=== PATIENT | male | born 1950 | race Caucasian/White ===

== ENCOUNTER 2016-12-03 18:42 | Inpatient (IN) | payer MEDICARE ==
[~2016-12-03] VITALS: Ht 182.9 cm; Wt 129.8 kg
[~2016-12-03 18:42] MED LIST: ALLO300T PO; ASPI-482 PO; ATOR40TA59 PO; CANA100T PO; EXEN2VIA SQ; LINA5TAB4 PO; LISI-334 PO; LISI1TAB5 PO; METF-620 PO; METO25TA4 PO; NIFE30TA9 PO; NIFE60TA10 PO; TICA90TA PO
[2016-12-03 19:28] LABS: BASO # 0.1 x10^3/uL (0.0-0.2); BASO % 1 % (0-3); EOS % 2 % (0-3); HEMATOCRIT 45.2 % (39.0-53.0); HEMOGLOBIN 14.8 g/dL (13.0-17.5); LYMPH # 1.2 x10^3/uL (1.0-4.8); LYMPH % 12 % (24-48); MEAN CORPUSCULAR HEMOGLOBIN 30 pg (25-35); MEAN CORPUSCULAR HGB CONC 33 g/dL (31-37); MEAN CORPUSCULAR VOLUME 92 fL (79-100); MONO % 7 % (0-9); NEUT % 79 % (31-73); PLATELET COUNT 341 x10^3/uL (140-400); RED BLOOD COUNT 4.93 x10^6/uL (4.30-5.70); WHITE BLOOD COUNT 10.4 x10^3/uL (4.0-11.0)
[2016-12-03 19:40] LABS: CALCIUM 9.2 mg/dL (8.5-10.1); CREATININE 0.9 mg/dL (0.7-1.3); GFR 84.4; POTASSIUM 4.4 mmol/L (3.5-5.1)
[2016-12-03 19:46] LABS: ALBUMIN 4.2 g/dL (3.4-5.0); ALBUMIN/GLOBULIN RATIO 1.4 (1.0-1.7); TOTAL BILIRUBIN 0.2 mg/dL (0.2-1.0); TOTAL PROTEIN 7.3 g/dL (6.4-8.2)
[2016-12-03] MEDS ORDERED: INSU300I SQ (20:08)
--- NOTE | 2016-12-03 20:14 | PHYS DOC ---
Past Medical History Past Medical History: Diabetes-Type II, High Cholesterol, Heart Disease, Hypertension, Other Additional Past Medical Histor: L ciatica - L foot neuropathy Past Surgical History: Angioplasty, Other Additional Past Surgical Histo: Cardiac stent,lower back surgery Alcohol Use: None Drug Use: None Adult General Chief Complaint Chief Complaint: CHEST PAIN HPI HPI Patient is a 66 year old gentleman with history significant for coronary artery disease in the past who has had 2 stents, history of hypertension and diabetes. No history of liver longer kidney pals. Does not smoke drink or do any drugs. Is not allergic to any medications. Patient presents here today complaining of chest discomfort while he was walking. Patient reports she's had intermittent chest pain for the last 2 weeks this pain radiating down his left arm with some associated shortness of breath. Patient reports his last tetanus 3 years ago. Patient reports he had a stress test last December and was told was normal. 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 Patient denies any other symptomology. Patient denies any fevers shakes chills nausea vomiting diarrhea cough cold runny nose. Constitutional: Denies fever or chills Eyes: Denies change in visual acuity, redness, or eye pain HENT: Denies nasal congestion or sore throat All other review systems are negative except as documented in the history of present illness portion. Physical exam: Constitutional: Well developed, well nourished, no acute distress, non-toxic appearance. HENT: Normocephalic, atraumatic, bilateral external ears normal, nose normal. Eyes: EOMI, conjunctiva normal, no discharge. Neck: Normal range of motion, no tenderness, supple, no stridor. Cardiovascular:Heart rate regular rhythm Lungs & Thorax: Bilateral breath sounds clear to auscultation no respiratory distress Abdomen: Bowel sounds normal, soft, no tenderness, no masses, no pulsatile masses. Skin: Warm, dry, no erythema, no rash. Back: No tenderness, no CVA tenderness. Extremities: No tenderness, no cyanosis, no clubbing, ROM intact, no edema. Neurologic: Alert and oriented X 3, normal motor function, normal sensory function, no focal deficits noted. Psychologic: Affect normal, judgement normal, mood normal. EKG Normal sinus rhythm with nonspecific ST-T wave abnormalities. No evidence of ST elevation CT. Interpreted by ER M.D. Chest x-ray Poor inspiratory effort, normal heart size, no infiltrates or effusions, no pneumothorax no pneumonia. Interpreted by ER Catarino Assessment and plan 66-year-old gentleman with a history significant for coronary artery disease has had 3 stents in the past comes to the ER today complaining of exertional chest pain has been intermittent now for approximately 2-3 weeks. Patient is extremely high risk for coronary disease. Patient was given aspirin after patient will be admitted to the hospital for further cardiac evaluation. Patient 's initial troponin and EKG do not show any acute pathology at this time. Allergies Allergies Allergies Coded Allergies Type Severity Reaction Last Updated Verified No Known Drug Allergies 01/22/14 No Current Patient Data Vital Signs Vital Signs Date Time Temp Pulse Resp B/P (MAP) Pulse Ox O2 Delivery O2 Flow Rate FiO2 12/03/16 18:55 98.3 109 20 141/79 (99) 93 Room Air 98.3 Lab Values Laboratory Tests Test 12/03/16 19:18 White Blood Count 10.4 x10^3/uL (4.0-11.0) Red Blood Count 4.93 x10^6/uL (4.30-5.70) Hemoglobin 14.8 g/dL (13.0-17.5) Hematocrit 45.2 % (39.0-53.0) Mean Corpuscular Volume 92 fL (79-100) Mean Corpuscular Hemoglobin 30 pg (25-35) Mean Corpuscular Hemoglobin Concent 33 g/dL (31-37) Red Cell Distribution Width 15.0 % (11.5-14.5) H Platelet Count 341 x10^3/uL (140-400) Neutrophils (%) (Auto) 79 % (31-73) H Lymphocytes (%) (Auto) 12 % (24-48) L Monocytes (%) (Auto) 7 % (0-9) Eosinophils (%) (Auto) 2 % (0-3) Basophils (%) (Auto) 1 % (0-3) Neutrophils # (Auto) 8.2 x10^3uL (1.8-7.7) H Lymphocytes # (Auto) 1.2 x10^3/uL (1.0-4.8) Monocytes # (Auto) 0.7 x10^3/uL (0.0-1.1) Eosinophils # (Auto) 0.2 x10^3/uL (0.0-0.7) Basophils # (Auto) 0.1 x10^3/uL (0.0-0.2) Sodium Level 140 mmol/L (136-145) Potassium Level 4.4 mmol/L (3.5-5.1) Chloride Level 100 mmol/L (98-107) Carbon Dioxide Level 28 mmol/L (21-32) Anion Gap 12 (6-14) Blood Urea Nitrogen 22 mg/dL (8-26) Creatinine 0.9 mg/dL (0.7-1.3) Estimated GFR (Cockcroft-Gault) 84.4 BUN/Creatinine Ratio 24 (6-20) H Glucose Level 343 mg/dL (70-99) H Calcium Level 9.2 mg/dL (8.5-10.1) Total Bilirubin 0.2 mg/dL (0.2-1.0) Aspartate Amino Transferase (AST) 19 U/L (15-37) Alanine Aminotransferase (ALT) 32 U/L (16-63) Alkaline Phosphatase 46 U/L (46-116) Troponin I Quantitative < 0.017 ng/mL (0.000-0.055) Total Protein 7.3 g/dL (6.4-8.2) Albumin 4.2 g/dL (3.4-5.0) Albumin/Globulin Ratio 1.4 (1.0-1.7) Laboratory Tests 12/03/16 19:18 Laboratory Tests 12/03/16 19:18 EKG EKG [] Radiology/Procedures Radiology/Procedures [] Course & Med Decision Making Course & Med Decision Making Pertinent Labs and Imaging studies reviewed. (See chart for details) [] Dragon Disclaimer Dragon Disclaimer This electronic medical record was generated, in whole or in part, using a voice recognition dictation system. Departure Departure Impression: Primary Impression: Unstable angina Disposition: ADMITTED INPATIENT Admitting Physician: Anita Penny Condition: IMPROVED Referrals: GRECIA CHILDERS (PCP) OJSH AMATO MD Dec 03, 2016 20:14
[2016-12-03] MEDS ORDERED: NITROGLYCERIN SUBLINGUAL 0.4 MG BOTTLE OF 25. SL PRN (20:15)
[2016-12-03] MEDS ORDERED: ASPIRIN CHEWABLE 81 MG TABLET. PO ONE (20:15)
[2016-12-03] MEDS ORDERED: MORPHINE SULFATE 4 MG/ML DISP.SYRIN. IV PRN (20:15)
[2016-12-03] MEDS ORDERED: ONDANSETRON PF 4 MG/2 ML VIAL. IV PRN (20:15)
[2016-12-03] MEDS ORDERED: NITROGLYCERIN OINT 1 GM PACKET. TP ONE (20:15)
[2016-12-03] MEDS ORDERED: ACETAMINOPHEN 325 MG TABLET. PO PRN (20:15)
--- NOTE | 2016-12-03 21:27 | PDOC1 ---
History and Physical Date of Admission Date of Admission DATE: 12/03/16 TIME: 21:27 Identification/Chief Complaint Chief Complaint chest pain Problems: Source Source: Chart review, Patient History of Present Illness History of Present Illness Mr. Funk, is a 66 year old male with worsening recurrent chest pain, intermittent pain with pressure. no diaphoreiss, no pressure exactly. He noted the pain was worse while he was walking. Pain 5.10 for 2 weeks or more. 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 Past Medical History Past Medical History coronary artery disease in the past who has had 2 stents, history of hypertension and diabetes. Cardiovascular: CAD, HTN, Hyperlipidemia Pulmonary: No pertinent hx CENTRAL NERVOUS SYSTEM: Other GI: No pertinent hx Heme/Onc: No pertinent hx Hepatobiliary: No pertinent hx Psych: No pertinent hx Musculoskeletal: Osteoarthritis Rheumatologic: Gout Infectious disease: No pertinent hx Renal/: No pertinent hx Endocrine: Diabetes Past Surgical History Past Surgical History: Other Family History Family History: Coronary Artery Disease, Diabetes Social History Smoke: No ALCOHOL: none Drugs: None Current Problem List Problem List Problems Medical Problems: (1) Unstable angina Status: Acute Problems: Current Medications Current Medications Current Medications Ondansetron HCl (Zofran) 4 mg PRN Q8HRS PRN IV NAUSEA/VOMITING; Start 12/03/16 at 20:15; Stop 12/04/16 at 20:14 Morphine Sulfate 2 mg PRN Q2HR PRN IV PAIN; Start 12/03/16 at 20:15; Stop 12/04 at 20:14 Acetaminophen (Tylenol) 650 mg PRN Q4HRS PRN PO FEVER; Start 12/03/16 at 20:15 ; Stop 12/04/16 at 20:14 Nitroglycerin (Nitrostat) 0.4 mg PRN Q5MIN PRN SL CHEST PAIN; Start 12/03/16 at 20:15; Stop 12/04/16 at 20:14 Aspirin (Children'S Aspirin) 324 mg 1X ONCE PO Last administered on 12/03/16 20:34; Start 12/03/16 at 20:15; Stop 12/03/16 at 20:16; Status DC Nitroglycerin (Nitro-Bid Oint) 1 inch 1X ONCE TP Last administered on 8/18/ 17at 20:41; Start 12/03/16 at 20:15; Stop 12/03/16 at 20:16; Status DC Active Scripts Active Lisinopril 20 Mg Tablet 1 Tab PO DAILY Reported Sandra Hsu (Insulin Glargine,Hum.rec.anlog) 300 Unit/1 Ml Insuln.pen 5 Unit SQ Brilinta (Ticagrelor) 90 Mg Tablet 90 Mg PO BID92 Bydureon (Exenatide Microspheres) 2 Mg Vial 2 Mg SQ WEEKLY Tradjenta (Linagliptin) 5 Mg Tablet 1 Tab PO DAILY Invokana (Canagliflozin) 100 Mg Tablet 100 Mg PO Allopurinol 300 Mg Tablet 1 Tab PO DAILY Metformin Hcl 1,000 Mg Tablet 1 Tab PO BID Aspir 81 (Aspirin) 81 Mg Tablet.dr 1 Tab PO DAILY Metoprolol Tartrate 25 Mg Tablet 25 Mg PO BID Atorvastatin Calcium 40 Mg Tablet 1 Tab PO QHS Allergies Allergies: Coded Allergies: No Known Drug Allergies (Unverified , 01/22/14) ROS General: No: Chills, Night Sweats, Fatigue, Malaise, Appetite, Other PSYCHOLOGICAL ROS: No: Anxiety, Behavioral Disorder, Concentration difficultie , Decreased libido, Depression, Disorientation, Hallucinations, Hostility, Irritablity, Memory difficulties, Mood Swings, Obsessive thoughts, Physical abuse, Sexual abuse, Sleep disturbances, Suicidal ideation, Other Eyes: No Blurry vision, No Decreased vision, No Double vision, No Dry eyes, No Excessive tearing, No Eye Pain, No Itchy Eyes, No Loss of vision, No Photophobia , No Scotomata, No Uses contacts, No Uses glasses, No Other HEENT: No: Heacaches, Visual Changes, Hearing change, Nasal congestion, Nasal discharge, Oral lesions, Sinus pain, Sore Throat, Epistaxis, Sneezing, Snoring, Tinnitus, Vertigo, Vocal changes, Other Respiratory: YES: SOB with excertion, No: Cough, Hemoptysis, Orthopnea, Pleuritic Pain, Shortness of breath, Sputum Changes, Stridor, Tachypnea, Wheezing, Other Cardiovascular: yes Chest Pain Genitourinary: No Dysuria, No Frequency, No Incontinence, No Hematuria, No Retention, No Discharge, No Urgency, No Pain, No Flank Pain, No Other, No , No , No , No , No , No , No Musculoskeletal: No Gait Disturbance, No Joint Pain, No Joint Stiffness, No Joint Swelling, No Muscle Pain, No Muscular Weakness, No Pain In:, No Swelling In:, No Other Neurological: No Behavorial Changes, No Bowel/Bladder ControlChng, No Confusion , No Dizziness, No Gait Disturbance, No Headaches, No Impaired Coord/balance, No Memory Loss, No Numbness/Tingling, No Seizures, No Speech Problems, No Tremors, No Visual Changes, No Weakness, No Other Skin: No Dry Skin, No Eczema, No Hair Changes, No Lumps, No Mole Changes, No Mottling, No Nail Changes, No Pruritus, No Rash, No Skin Lesion Changes, No Other, No Acne Physical Exam General: Alert, Oriented X3, Cooperative HEENT: Atraumatic, PERRLA Lungs: Clear to auscultation Abdomen: Normal bowel sounds, Soft Rectal Exam: not examined Extremities: No edema Skin: No rashes, No significant lesion Neuro: Normal tone, Sensation intact, Cranial nerves 3-12 NL Psych/Mental Status: Mental status NL, Mood NL Vitals Vitals Vital Signs Date Time Temp Pulse Resp B/P (MAP) Pulse Ox O2 Delivery O2 Flow Rate FiO2 12/03/16 20:41 80 139/89 12/03/16 18:55 98.3 20 93 Room Air 98.3 Labs Labs Laboratory Tests Test 12/03/16 19:18 White Blood Count 10.4 x10^3/uL (4.0-11.0) Red Blood Count 4.93 x10^6/uL (4.30-5.70) Hemoglobin 14.8 g/dL (13.0-17.5) Hematocrit 45.2 % (39.0-53.0) Mean Corpuscular Volume 92 fL (79-100) Mean Corpuscular Hemoglobin 30 pg (25-35) Mean Corpuscular Hemoglobin Concent 33 g/dL (31-37) Red Cell Distribution Width 15.0 % (11.5-14.5) Platelet Count 341 x10^3/uL (140-400) Neutrophils (%) (Auto) 79 % (31-73) Lymphocytes (%) (Auto) 12 % (24-48) Monocytes (%) (Auto) 7 % (0-9) Eosinophils (%) (Auto) 2 % (0-3) Basophils (%) (Auto) 1 % (0-3) Neutrophils # (Auto) 8.2 x10^3uL (1.8-7.7) Lymphocytes # (Auto) 1.2 x10^3/uL (1.0-4.8) Monocytes # (Auto) 0.7 x10^3/uL (0.0-1.1) Eosinophils # (Auto) 0.2 x10^3/uL (0.0-0.7) Basophils # (Auto) 0.1 x10^3/uL (0.0-0.2) Sodium Level 140 mmol/L (136-145) Potassium Level 4.4 mmol/L (3.5-5.1) Chloride Level 100 mmol/L (98-107) Carbon Dioxide Level 28 mmol/L (21-32) Anion Gap 12 (6-14) Blood Urea Nitrogen 22 mg/dL (8-26) Creatinine 0.9 mg/dL (0.7-1.3) Estimated GFR (Cockcroft-Gault) 84.4 BUN/Creatinine Ratio 24 (6-20) Glucose Level 343 mg/dL (70-99) Calcium Level 9.2 mg/dL (8.5-10.1) Total Bilirubin 0.2 mg/dL (0.2-1.0) Aspartate Amino Transf (AST/SGOT) 19 U/L (15-37) Alanine Aminotransferase (ALT/SGPT) 32 U/L (16-63) Alkaline Phosphatase 46 U/L (46-116) Troponin I Quantitative < 0.017 ng/mL (0.000-0.055) Total Protein 7.3 g/dL (6.4-8.2) Albumin 4.2 g/dL (3.4-5.0) Albumin/Globulin Ratio 1.4 (1.0-1.7) Laboratory Tests Test 12/03/16 19:18 White Blood Count 10.4 x10^3/uL (4.0-11.0) Red Blood Count 4.93 x10^6/uL (4.30-5.70) Hemoglobin 14.8 g/dL (13.0-17.5) Hematocrit 45.2 % (39.0-53.0) Mean Corpuscular Volume 92 fL (79-100) Mean Corpuscular Hemoglobin 30 pg (25-35) Mean Corpuscular Hemoglobin Concent 33 g/dL (31-37) Red Cell Distribution Width 15.0 % (11.5-14.5) Platelet Count 341 x10^3/uL (140-400) Neutrophils (%) (Auto) 79 % (31-73) Lymphocytes (%) (Auto) 12 % (24-48) Monocytes (%) (Auto) 7 % (0-9) Eosinophils (%) (Auto) 2 % (0-3) Basophils (%) (Auto) 1 % (0-3) Neutrophils # (Auto) 8.2 x10^3uL (1.8-7.7) Lymphocytes # (Auto) 1.2 x10^3/uL (1.0-4.8) Monocytes # (Auto) 0.7 x10^3/uL (0.0-1.1) Eosinophils # (Auto) 0.2 x10^3/uL (0.0-0.7) Basophils # (Auto) 0.1 x10^3/uL (0.0-0.2) Sodium Level 140 mmol/L (136-145) Potassium Level 4.4 mmol/L (3.5-5.1) Chloride Level 100 mmol/L (98-107) Carbon Dioxide Level 28 mmol/L (21-32) Anion Gap 12 (6-14) Blood Urea Nitrogen 22 mg/dL (8-26) Creatinine 0.9 mg/dL (0.7-1.3) Estimated GFR (Cockcroft-Gault) 84.4 BUN/Creatinine Ratio 24 (6-20) Glucose Level 343 mg/dL (70-99) Calcium Level 9.2 mg/dL (8.5-10.1) Total Bilirubin 0.2 mg/dL (0.2-1.0) Aspartate Amino Transf (AST/SGOT) 19 U/L (15-37) Alanine Aminotransferase (ALT/SGPT) 32 U/L (16-63) Alkaline Phosphatase 46 U/L (46-116) Troponin I Quantitative < 0.017 ng/mL (0.000-0.055) Total Protein 7.3 g/dL (6.4-8.2) Albumin 4.2 g/dL (3.4-5.0) Albumin/Globulin Ratio 1.4 (1.0-1.7) VTE Prophylaxis Ordered VTE Prophylaxis Devices: Yes VTE Pharmacological Prophylaxi: Yes Assessment/Plan Assessment/Plan angina Hx of known CAD admit, r/o ACS, consult cardiology, last stress test < 1 year ago obesity, BMI 38 ANAMIKA POND MD Dec 03, 2016 21:27
[2016-12-03 21:40] VITALS: BP 150/89
[2016-12-03] MEDS ORDERED: NIFE90TA PO (22:07)
[2016-12-03] MEDS ORDERED: LISI1TAB5 PO (22:07)
[2016-12-03] MEDS ORDERED: DOXY25TA42 PO (22:08)
[2016-12-03] MEDS: ZOLPIDEM 5 MG TABLET. PO PRN (22:57)
[2016-12-03 23:20] VITALS: BP 106/72
--- NOTE | 2016-12-04 01:41 | ACF ---
Admission Forms Criteria CHEST PAIN Clinical Indications for Admission to Inpatient Care ([place]/check or initial the applicable condition/criteria) Admission is indicated for chest pain and ANY ONE of the following (1)(2)(3)(4)( 5)(6)(7): [X]I. Angina with acute coronary syndrome (Also use Myocardial Infarction or Angina guideline) [ ]II. Hemodynamic instability [ ]III. Respiratory distress [ ]IV. Chest pain indicative of serious diagnosis other than coronary artery disease (e.g., aorticdissection) Extended stay beyond goal length of stay may be needed for(3)(4)(10)(45)(48) [ ]a) Unstable angina [ ]b) Continued suspicion of acute coronary syndrome with inability to complete needed cardiac evaluation (eg, patient clinically unable to undergo stress testing) [ ]c) Myocardial infarction [ ]d) Specific condition diagnosed after evaluation (eg, pulmonary embolism, aortic dissection)(49)(50)(51) The original [employer] content created by [employer] has been revised. The portions of the content which have been revised are identified through the use of italic text, and [employer] has neither reviewed nor approved the modified material. All other unmodified content is copyright [employer]. Please see references footnoted in the original [employer] edition 2014 Admission Criteria Met?: Yes TONEY HOWARD Dec 04, 2016 01:41
[2016-12-04 03:45] VITALS: BP 99/62
[2016-12-04] MEDS ORDERED: DEXTROSE 50% 25 GM / 50ML DISP.SYRIN. IV PRN ×2 (07:00→12:45)
[2016-12-04 07:12] VITALS: BP 120/72
--- NOTE | 2016-12-04 07:16 | EKG ---
[facility] [address] [place] [address] Test Date: 2016-12-03 Test Time: 18:49:18 Pat Name: YESI QUINTERO Department: Room: 263 1 Gender: M Tour Director: : 1950 Requested By: JOSH AMATO Order Number: [id number] Reading MD: Fadia Mariscal Measurements Intervals [place] Rate: 95 P: 40 CA: 178 QRS: -58 QRSD: 116 T: -6 QT: 392 QTc: 496 Interpretive Statements SINUS RHYTHM ABNORMAL LEFT AXIS DEVIATION R-S TRANSITION ZONE IN V LEADS DISPLACED TO THE LEFTQRS(T) CONTOUR ABNORMALITY CONSISTENT WITH INFERIOR INFARCT AGE UNDETERMINED INTRA-VENTRICULAR CONDUCTION DEFECT Electronically Signed On 12-05-2016 19:39:19 CDT by Fadia Mariscal
--- NOTE | 2016-12-04 08:57 | RAD ---
Indication: Chest pain, post coronary stent. Technique: Upright portable chest radiograph was obtained and compared to a study from January 22, 2014. Findings: The lungs are clear. The heart is not enlarged. There is no heart failure. There are degenerative changes in the spine. Leads overlie the patient. Impression: No acute thoracic findings.
--- NOTE | 2016-12-04 09:14 | PDOC2 ---
ROSA ROSS [employer] PURCHASING AGENT 12/04/16 0914: CARDIAC CONSULT DATE OF CONSULT Date of Consult DATE: 12/04/16 TIME: 09:01 REASON FOR CONSULT Reason for Consult: [place], CP REFERRING PHYSICIAN Referring Physician: Genaro SOURCE Source: Chart review, Patient HISTORY OF PRESENT ILLNESS HISTORY OF PRESENT ILLNESS This is a pleasant 66 yo male admitted for complains of shoulder and left arm pain. Reports that he has been having this intermittently in the last few weeks. Yesterday he went to the store and actually ran and started having severe left shoulder discomfort radiating to his left arm. No nausea or palpitations, dizziness at that time. Reports no CP or SOA. This was sustained at high intensity for about 20 minutes then stayed on and lingered. Presently he is CP free. Reports that he has been compliant with his medications and his BG has been running 130-160s. PAST MEDICAL HISTORY Past Medical History Cardiovascular: CAD, HTN, Hyperlipidemia, [place] Pulmonary: No pertinent hx CENTRAL NERVOUS SYSTEM: Other (no pertinent history) GI: No pertinent hx Heme/Onc: No pertinent hx Hepatobiliary: No pertinent hx Psych: No pertinent hx Musculoskeletal: Osteoarthritis Rheumatologic: Gout Infectious disease: No pertinent hx ENT: No pertinent hx Renal/: No pertinent hx Endocrine: Diabetes Dermatology: No pertinent hx PAST SURGICAL HISTORY Past Surgical History: Other (PCI/FRANCIE to LAD 2011 and 2013 STEMI FRANCIE to RCA) FAMILY HISTORY Family History Diabetes (Father and Mother) SOCIAL HISTORY Social History Smoke: No ALCOHOL: none Drugs: None Lives: with Family Domestic Violence: Neg CURRENT MEDICATIONS CURRENT MEDICATIONS Current Medications Medications (Trade) Dose Ordered Sig/Santhosh Route PRN Reason Start Time Stop Time Status Last Admin Dose Admin Aspirin (Children'S Aspirin) 324 mg 1X ONCE PO 12/03/16 20:15 12/03/16 20:16 DC 12/03/16 20:34 Nitroglycerin (Nitro-Bid Oint) 1 inch 1X ONCE TP 12/03/16 20:15 12/03/16 20:16 DC 12/03/16 20:41 Zolpidem Tartrate (Ambien) 5 mg PRN QHS PRN PO INSOMNIA 12/03/16 22:45 12/03/16 22:57 ALLERGIES ALLERGIES: Coded Allergies: No Known Drug Allergies (Unverified , 01/22/14) ROS Review of System 14 point ROS evaluated with pertinent positives noted per HPI PHYSICAL EXAM General: Alert, Oriented X3, Cooperative, No acute distress HEENT: Mucous membr. moist/pink Lungs: Clear to auscultation, Normal air movement Heart: Regular rate (SR), Normal S1, Normal S2, Other (3/6 systolic murmur to CHARY border) Abdomen: Soft, No tenderness Extremities: No cyanosis, No edema Skin: No breakdown, No significant lesion Neuro: Normal speech, Sensation intact Psych/Mental Status: Mental status NL, Mood NL MUSCULOSKELETAL: Osteoarthritic changes both hands VITALS VITALS Vital Signs Date Time Temp Pulse Resp B/P (MAP) Pulse Ox O2 Delivery O2 Flow Rate FiO2 12/04/16 07:12 97.6 78 18 120/72 (88) 94 Room Air 97.6 LABS Lab: Laboratory Tests Test 12/03/16 19:18 12/03/16 21:52 12/04/16 02:10 12/04/16 07:14 White Blood Count 10.4 x10^3/uL (4.0-11.0) Red Blood Count 4.93 x10^6/uL (4.30-5.70) Hemoglobin 14.8 g/dL (13.0-17.5) Hematocrit 45.2 % (39.0-53.0) Mean Corpuscular Volume 92 fL (79-100) Mean Corpuscular Hemoglobin 30 pg (25-35) Mean Corpuscular Hemoglobin Concent 33 g/dL (31-37) Red Cell Distribution Width 15.0 % (11.5-14.5) Platelet Count 341 x10^3/uL (140-400) Neutrophils (%) (Auto) 79 % (31-73) Lymphocytes (%) (Auto) 12 % (24-48) Monocytes (%) (Auto) 7 % (0-9) Eosinophils (%) (Auto) 2 % (0-3) Basophils (%) (Auto) 1 % (0-3) Neutrophils # (Auto) 8.2 x10^3uL (1.8-7.7) Lymphocytes # (Auto) 1.2 x10^3/uL (1.0-4.8) Monocytes # (Auto) 0.7 x10^3/uL (0.0-1.1) Eosinophils # (Auto) 0.2 x10^3/uL (0.0-0.7) Basophils # (Auto) 0.1 x10^3/uL (0.0-0.2) Sodium Level 140 mmol/L (136-145) Potassium Level 4.4 mmol/L (3.5-5.1) Chloride Level 100 mmol/L (98-107) Carbon Dioxide Level 28 mmol/L (21-32) Anion Gap 12 (6-14) Blood Urea Nitrogen 22 mg/dL (8-26) Creatinine 0.9 mg/dL (0.7-1.3) Estimated GFR (Cockcroft-Gault) 84.4 BUN/Creatinine Ratio 24 (6-20) Glucose Level 343 mg/dL (70-99) Calcium Level 9.2 mg/dL (8.5-10.1) Total Bilirubin 0.2 mg/dL (0.2-1.0) Aspartate Amino Transf (AST/SGOT) 19 U/L (15-37) Alanine Aminotransferase (ALT/SGPT) 32 U/L (16-63) Alkaline Phosphatase 46 U/L (46-116) Troponin I Quantitative < 0.017 ng/mL (0.000-0.055) 0.973 ng/mL (0.000-0.055) Total Protein 7.3 g/dL (6.4-8.2) Albumin 4.2 g/dL (3.4-5.0) Albumin/Globulin Ratio 1.4 (1.0-1.7) Glucose (Fingerstick) 219 mg/dL (70-99) 165 mg/dL (70-99) Test 12/04/16 07:50 Troponin I Quantitative 0.929 ng/mL (0.000-0.055) ECHOCARDIOGRAM ECHOCARDIOGRAM <Conclusion> Technically difficult study. Lumason echo contrast used. Left ventricle systolic function is normal. The Ejection Fraction is 50-55%. There is normal LV segmental wall motion. Transmitral Doppler flow pattern is Grade I-abnormal relaxation pattern. Doppler and Color Flow revealed trace to mild tricuspid regurgitation. The PA pressure was estimated at 31 mmHg. There is no evidence of significant pericardial effusion. DATE: 01/13/16 1319 HEART CATH HEART CATH Findings: Coronaries: The left main is normal. The LAD has minimal 20-30% plaquing. The circumflex is normal. The RCA is 100% occluded inside the stent. Once this was evaluated I felt that this was an acute thrombosis and therefore I decided to try to get it open. The patient was fully heparinized and a bolus of Integrilin was given as well as an Integrilin drip. A guidewire was then advanced down the guiding catheter into the RCA across the area of total obstruction and then a 3.0 x 23 mm drug-eluting stent was advanced over the guidewire once I placed it and I was satisfied the positioning he was deployed multiple high-pressure inflations were then done after this was completed the balloon was removed views were then done I then saw that the previously dilated area appeared to be well open no significant thrombus was seen and there was now excellent flow through there all the way to the distal portion of the PDA and posterolateral branches. The patient was now free of chest pains therefore I decided to terminate the procedure at this point. Since this was an acute thrombosis I wanted to leave the lines in so they were sutured in place and I want to give 24 hours of IV heparin as well as IV Integrilin. Tomorrow after we stopped the heparin and Integrilin will then DC the groin lines. Then transferred to the intensive care unit in satisfactory condition and free of chest pains DATE: 01/28/141748 ASSESSMENT/PLAN ASSESSMENT/PLAN 1. NSTEMI: Troponin 0.9. 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 CAD: 2011 PCI/FRANCIE LAD, 2013 [place] with FRANCIE to RCA 3. HTN: controlled 4. HLP 5. DM2: uncontrolled Recommendations 1. Start on heparin drip. Continue with ASA 2. Continue with secondary prevention 3. TTE tomorrow. Repeat EKG. [facility] Tuesday, risks and benefits discussed and agreeable 4. Optimize BG per PCP 5. Lifestyle modifications 6. TSH, lipid, Mg Problems: TRICIA CASTILLO MD 12/04/16 1257: CARDIAC CONSULT ALLERGIES ALLERGIES: Coded Allergies: No Known Drug Allergies (Unverified , 01/22/14) ASSESSMENT/PLAN ASSESSMENT/PLAN Patient seen and examined. Agree with ASSET PROTECTION REPRESENTATIVE's assessment and plan. Patient with history of CAD has been admitted with shoulder pain and ruled in for NSTEMI. Presently chest pain free. Agree with initiating heparin infusion per protocol. Check 2D echo tomorrow and plan for heart cath and possible PCI tuesday. Thank you for your consultation. Problems: ROSA ROSS APRN Dec 04, 2016 09:14 TRICIA CASTILLO MD Dec 04, 2016 12:57
[2016-12-04] MEDS ORDERED: ANTI-COAG MONITOR BY PHARMACY. MC PRN (09:15)
[2016-12-04] MEDS ORDERED: HEPARIN for IV BOLUS 10,000 UNIT/10 ML VIAL. IV PRN (09:15)
[2016-12-04 09:30] LABS: MAGNESIUM 1.9 mg/dL (1.8-2.4)
[2016-12-04 09:33] LABS: CHOLESTEROL/HDL RATIO 3.6
--- NOTE | 2016-12-04 09:34 | EKG ---
[facility] [address] [place] [address] Test Date: 2016-12-04 Test Time: 09:23:30 Pat Name: YESI QUINTERO Department: Room: 263 1 Gender: M [employer]: : 1950 Requested By: ROSA ROSS Order Number: [id number] Reading MD: Fadia Mariscal Measurements Intervals [place] Rate: 68 P: 34 HI: 172 QRS: -59 QRSD: 126 T: -26 QT: 462 QTc: 497 Interpretive Statements SINUS RHYTHM LEFT ANTERIOR FASCICULAR BLOCK RIGHT BUNDLE BRANCH BLOCK BIFASCICULAR BLOCK ABNORMAL ECG Electronically Signed On 12-05-2016 20:00:27 CDT by Fadia Mariscal
[2016-12-04] MEDS: ASPIRIN ENTERIC COATED 81 MG TABLET.DR. PO SCH (10:02)
[2016-12-04] MEDS: ALLOPURINOL 300 MG TABLET. PO SCH (10:03)
[2016-12-04] MEDS: LISINOPRIL 20 MG TABLET PO SCH ×2 (10:03→20:55)
[2016-12-04] MEDS: hydroCHLOROthiazide 12.5 MG CAPSULE PO SCH ×2 (10:03→20:55)
[2016-12-04] MEDS: METOPROLOL TART IMMED RELEASE 25 MG TABLET. PO SCH ×2 (10:03→20:55)
[2016-12-04] MEDS: LINAGLIPTIN 5 MG TABLET PO SCH (10:04)
[2016-12-04] MEDS: HEPARIN 25,000UTS/500ML PREMIX 500 ML IV PRN ×2 (10:25→23:47)
[2016-12-04 10:31] VITALS: BP 112/77
--- NOTE | 2016-12-04 12:54 | PDOC ---
PROGRESS NOTES Chief Complaint Chief Complaint angina, unstable CAD troponin elevation Dm2, obesity, BMI 38 History of Present Illness History of Present Illness trop to near 1, same CV started heparin gtt, no pain, feels well consider cath on tuesday, Vitals Vitals Vital Signs Date Time Temp Pulse Resp B/P (MAP) Pulse Ox O2 Delivery O2 Flow Rate FiO2 12/04/16 10:31 97.4 79 20 112/77 (89) 95 Room Air 97.4 Physical Exam General: Alert, Oriented X3, Cooperative, No acute distress Heart: Regular rate (SR), Normal S1, Normal S2, Other (3/6 systolic murmur to CHARY border) Lungs: Clear Abdomen: Soft, No tenderness Extremities: No cyanosis, No edema Skin: No breakdown, No significant lesion Labs LABS Laboratory Tests Test 12/03/16 19:18 12/03/16 21:52 12/04/16 02:10 12/04/16 07:14 White Blood Count 10.4 x10^3/uL (4.0-11.0) Red Blood Count 4.93 x10^6/uL (4.30-5.70) Hemoglobin 14.8 g/dL (13.0-17.5) Hematocrit 45.2 % (39.0-53.0) Mean Corpuscular Volume 92 fL (79-100) Mean Corpuscular Hemoglobin 30 pg (25-35) Mean Corpuscular Hemoglobin Concent 33 g/dL (31-37) Red Cell Distribution Width 15.0 % (11.5-14.5) Platelet Count 341 x10^3/uL (140-400) Neutrophils (%) (Auto) 79 % (31-73) Lymphocytes (%) (Auto) 12 % (24-48) Monocytes (%) (Auto) 7 % (0-9) Eosinophils (%) (Auto) 2 % (0-3) Basophils (%) (Auto) 1 % (0-3) Neutrophils # (Auto) 8.2 x10^3uL (1.8-7.7) Lymphocytes # (Auto) 1.2 x10^3/uL (1.0-4.8) Monocytes # (Auto) 0.7 x10^3/uL (0.0-1.1) Eosinophils # (Auto) 0.2 x10^3/uL (0.0-0.7) Basophils # (Auto) 0.1 x10^3/uL (0.0-0.2) Sodium Level 140 mmol/L (136-145) Potassium Level 4.4 mmol/L (3.5-5.1) Chloride Level 100 mmol/L (98-107) Carbon Dioxide Level 28 mmol/L (21-32) Anion Gap 12 (6-14) Blood Urea Nitrogen 22 mg/dL (8-26) Creatinine 0.9 mg/dL (0.7-1.3) Estimated GFR (Cockcroft-Gault) 84.4 BUN/Creatinine Ratio 24 (6-20) Glucose Level 343 mg/dL (70-99) Calcium Level 9.2 mg/dL (8.5-10.1) Total Bilirubin 0.2 mg/dL (0.2-1.0) Aspartate Amino Transf (AST/SGOT) 19 U/L (15-37) Alanine Aminotransferase (ALT/SGPT) 32 U/L (16-63) Alkaline Phosphatase 46 U/L (46-116) Troponin I Quantitative < 0.017 ng/mL (0.000-0.055) 0.973 ng/mL (0.000-0.055) Total Protein 7.3 g/dL (6.4-8.2) Albumin 4.2 g/dL (3.4-5.0) Albumin/Globulin Ratio 1.4 (1.0-1.7) Glucose (Fingerstick) 219 mg/dL (70-99) 165 mg/dL (70-99) Test 12/04/16 07:50 12/04/16 11:34 Magnesium Level 1.9 mg/dL (1.8-2.4) Troponin I Quantitative 0.929 ng/mL (0.000-0.055) Triglycerides Level 120 mg/dL (0-150) Cholesterol Level 131 mg/dL (0-200) LDL Cholesterol, Calculated 71 mg/dL (0-100) VLDL Cholesterol, Calculated 24 mg/dL (0-40) Non-HDL Cholesterol Calculated 95 mg/dL (0-129) HDL Cholesterol 36 mg/dL (40-60) Cholesterol/HDL Ratio 3.6 Thyroid Stimulating Hormone (TSH) 3.439 uIU/mL (0.358-3.74) Glucose (Fingerstick) 245 mg/dL (70-99) Assessment and Plan Assessmemt and Plan Problems Medical Problems: (1) Unstable angina Status: Acute Problems: Comment Review of Relevant I have reviewed the following items stacey (where applicable) has been applied. Labs Laboratory Tests Test 12/03/16 19:18 12/03/16 21:52 12/04/16 02:10 12/04/16 07:14 White Blood Count 10.4 x10^3/uL (4.0-11.0) Red Blood Count 4.93 x10^6/uL (4.30-5.70) Hemoglobin 14.8 g/dL (13.0-17.5) Hematocrit 45.2 % (39.0-53.0) Mean Corpuscular Volume 92 fL (79-100) Mean Corpuscular Hemoglobin 30 pg (25-35) Mean Corpuscular Hemoglobin Concent 33 g/dL (31-37) Red Cell Distribution Width 15.0 % (11.5-14.5) Platelet Count 341 x10^3/uL (140-400) Neutrophils (%) (Auto) 79 % (31-73) Lymphocytes (%) (Auto) 12 % (24-48) Monocytes (%) (Auto) 7 % (0-9) Eosinophils (%) (Auto) 2 % (0-3) Basophils (%) (Auto) 1 % (0-3) Neutrophils # (Auto) 8.2 x10^3uL (1.8-7.7) Lymphocytes # (Auto) 1.2 x10^3/uL (1.0-4.8) Monocytes # (Auto) 0.7 x10^3/uL (0.0-1.1) Eosinophils # (Auto) 0.2 x10^3/uL (0.0-0.7) Basophils # (Auto) 0.1 x10^3/uL (0.0-0.2) Sodium Level 140 mmol/L (136-145) Potassium Level 4.4 mmol/L (3.5-5.1) Chloride Level 100 mmol/L (98-107) Carbon Dioxide Level 28 mmol/L (21-32) Anion Gap 12 (6-14) Blood Urea Nitrogen 22 mg/dL (8-26) Creatinine 0.9 mg/dL (0.7-1.3) Estimated GFR (Cockcroft-Gault) 84.4 BUN/Creatinine Ratio 24 (6-20) Glucose Level 343 mg/dL (70-99) Calcium Level 9.2 mg/dL (8.5-10.1) Total Bilirubin 0.2 mg/dL (0.2-1.0) Aspartate Amino Transf (AST/SGOT) 19 U/L (15-37) Alanine Aminotransferase (ALT/SGPT) 32 U/L (16-63) Alkaline Phosphatase 46 U/L (46-116) Troponin I Quantitative < 0.017 ng/mL (0.000-0.055) 0.973 ng/mL (0.000-0.055) Total Protein 7.3 g/dL (6.4-8.2) Albumin 4.2 g/dL (3.4-5.0) Albumin/Globulin Ratio 1.4 (1.0-1.7) Glucose (Fingerstick) 219 mg/dL (70-99) 165 mg/dL (70-99) Test 12/04/16 07:50 12/04/16 11:34 Magnesium Level 1.9 mg/dL (1.8-2.4) Troponin I Quantitative 0.929 ng/mL (0.000-0.055) Triglycerides Level 120 mg/dL (0-150) Cholesterol Level 131 mg/dL (0-200) LDL Cholesterol, Calculated 71 mg/dL (0-100) VLDL Cholesterol, Calculated 24 mg/dL (0-40) Non-HDL Cholesterol Calculated 95 mg/dL (0-129) HDL Cholesterol 36 mg/dL (40-60) Cholesterol/HDL Ratio 3.6 Thyroid Stimulating Hormone (TSH) 3.439 uIU/mL (0.358-3.74) Glucose (Fingerstick) 245 mg/dL (70-99) Laboratory Tests Test 12/03/16 19:18 12/03/16 21:52 12/04/16 02:10 12/04/16 07:14 White Blood Count 10.4 x10^3/uL (4.0-11.0) Red Blood Count 4.93 x10^6/uL (4.30-5.70) Hemoglobin 14.8 g/dL (13.0-17.5) Hematocrit 45.2 % (39.0-53.0) Mean Corpuscular Volume 92 fL (79-100) Mean Corpuscular Hemoglobin 30 pg (25-35) Mean Corpuscular Hemoglobin Concent 33 g/dL (31-37) Red Cell Distribution Width 15.0 % (11.5-14.5) Platelet Count 341 x10^3/uL (140-400) Neutrophils (%) (Auto) 79 % (31-73) Lymphocytes (%) (Auto) 12 % (24-48) Monocytes (%) (Auto) 7 % (0-9) Eosinophils (%) (Auto) 2 % (0-3) Basophils (%) (Auto) 1 % (0-3) Neutrophils # (Auto) 8.2 x10^3uL (1.8-7.7) Lymphocytes # (Auto) 1.2 x10^3/uL (1.0-4.8) Monocytes # (Auto) 0.7 x10^3/uL (0.0-1.1) Eosinophils # (Auto) 0.2 x10^3/uL (0.0-0.7) Basophils # (Auto) 0.1 x10^3/uL (0.0-0.2) Sodium Level 140 mmol/L (136-145) Potassium Level 4.4 mmol/L (3.5-5.1) Chloride Level 100 mmol/L (98-107) Carbon Dioxide Level 28 mmol/L (21-32) Anion Gap 12 (6-14) Blood Urea Nitrogen 22 mg/dL (8-26) Creatinine 0.9 mg/dL (0.7-1.3) Estimated GFR (Cockcroft-Gault) 84.4 BUN/Creatinine Ratio 24 (6-20) Glucose Level 343 mg/dL (70-99) Calcium Level 9.2 mg/dL (8.5-10.1) Total Bilirubin 0.2 mg/dL (0.2-1.0) Aspartate Amino Transf (AST/SGOT) 19 U/L (15-37) Alanine Aminotransferase (ALT/SGPT) 32 U/L (16-63) Alkaline Phosphatase 46 U/L (46-116) Troponin I Quantitative < 0.017 ng/mL (0.000-0.055) 0.973 ng/mL (0.000-0.055) Total Protein 7.3 g/dL (6.4-8.2) Albumin 4.2 g/dL (3.4-5.0) Albumin/Globulin Ratio 1.4 (1.0-1.7) Glucose (Fingerstick) 219 mg/dL (70-99) 165 mg/dL (70-99) Test 12/04/16 07:50 12/04/16 11:34 Magnesium Level 1.9 mg/dL (1.8-2.4) Troponin I Quantitative 0.929 ng/mL (0.000-0.055) Triglycerides Level 120 mg/dL (0-150) Cholesterol Level 131 mg/dL (0-200) LDL Cholesterol, Calculated 71 mg/dL (0-100) VLDL Cholesterol, Calculated 24 mg/dL (0-40) Non-HDL Cholesterol Calculated 95 mg/dL (0-129) HDL Cholesterol 36 mg/dL (40-60) Cholesterol/HDL Ratio 3.6 Thyroid Stimulating Hormone (TSH) 3.439 uIU/mL (0.358-3.74) Glucose (Fingerstick) 245 mg/dL (70-99) Medications Current Medications Ondansetron HCl (Zofran) 4 mg PRN Q8HRS PRN IV NAUSEA/VOMITING; Start 12/03/16 at 20:15; Stop 12/04/16 at 20:14 Morphine Sulfate 2 mg PRN Q2HR PRN IV PAIN; Start 12/03/16 at 20:15; Stop 12/04 at 20:14 Acetaminophen (Tylenol) 650 mg PRN Q4HRS PRN PO FEVER; Start 12/03/16 at 20:15 ; Stop 12/04/16 at 20:14 Nitroglycerin (Nitrostat) 0.4 mg PRN Q5MIN PRN SL CHEST PAIN; Start 12/03/16 at 20:15; Stop 12/04/16 at 20:14 Aspirin (Children'S Aspirin) 324 mg 1X ONCE PO Last administered on 12/03/16 20:34; Start 12/03/16 at 20:15; Stop 12/03/16 at 20:16; Status DC Nitroglycerin (Nitro-Bid Oint) 1 inch 1X ONCE TP Last administered on 20:41; Start 12/03/16 at 20:15; Stop 12/03/16 at 20:16; Status DC Allopurinol (Zyloprim) 300 mg DAILY PO Last administered on 12/04/16 10:03; Start 12/04/16 at 09:00 Aspirin (Ecotrin) 81 mg DAILY PO Last administered on 12/04/16 10:02; Start at 09:00 Atorvastatin Calcium (Lipitor) 40 mg QHS PO ; Start 12/04/16 at 21:00 Diphenhydramine HCl (Benadryl) 25 mg HS PO ; Start 12/04/16 at 21:00 Linagliptin (Tradjenta) 5 mg DAILY PO Last administered on 12/04/16 10:04; Start 12/04/16 at 09:00 Metformin HCl (Glucophage) 1,000 mg BIDWMEALS PO Last administered on 10:05; Start 12/04/16 at 08:00; Stop 12/05/16 at 17:00 Metoprolol Tartrate (Lopressor) 25 mg BID PO Last administered on 12/04/16 10: 03; Start 12/04/16 at 09:00 Lisinopril (Prinivil) 20 mg BID PO Last administered on 12/04/16 10:03; Start 12/04/16 at 09:00 Nifedipine (Procardia Xl) 90 mg DAILY PO Last administered on 12/04/16 10:04; Start 12/04/16 at 09:00 Zolpidem Tartrate (Ambien) 5 mg PRN QHS PRN PO INSOMNIA Last administered on 22:57; Start 12/03/16 at 22:45 Hydrochlorothiazide (Microzide) 12.5 mg BID PO Last administered on 12/04/16 10:03; Start 12/04/16 at 09:00 Dextrose (Dextrose 50%-Water Syringe) 12.5 gm PRN Q15MIN PRN IV SEE COMMENTS; Start 12/04/16 at 07:00 Heparin Sodium/ Dextrose 500 ml @ 0 mls/hr CONT PRN IV SEE I/O RECORD Last administered on 12/04/16 10:25; Start 12/04/16 at 09:15 Heparin Sodium (Porcine) (Heparin Sodium) 3,200 unit PRN Q6HRS PRN IV FOR UFH LEVEL LESS THAN 0.2; Start 12/04/16 at 09:15 Info (Anti-Coagulation Monitoring By Pharmacy) 1 each PRN DAILY PRN MC SEE COMMENTS; Start 12/04/16 at 09:15 Insulin Aspart (NovoLOG) 0-9 UNITS QIDACHS SQ ; Start 12/04/16 at 13:00 Dextrose (Dextrose 50%-Water Syringe) 12.5 gm PRN Q15MIN PRN IV SEE COMMENTS; Start 12/04/16 at 12:45; Status UNV Insulin Detemir (Levemir) 12 units QHS SQ ; Start 12/04/16 at 21:00 Active Scripts Active Reported Sleep Aid (Doxylamine Succinate) 25 Mg Tablet 25 Mg PO HS Procardia Xl (Nifedipine) 90 Mg Tab.er.24 1 Tab PO DAILY Lisinopril-Hctz 20-12.5 Mg Tab (Lisinopril/Hydrochlorothiazide) 1 Each Tablet 1 Tab PO BID Toujeo Solostar (Insulin Glargine,Hum.rec.anlog) 300 Unit/1 Ml Insuln.pen 25 Unit SQ DAILY08 Tradjenta (Linagliptin) 5 Mg Tablet 1 Tab PO DAILY Allopurinol 300 Mg Tablet 1 Tab PO DAILY Metformin Hcl 1,000 Mg Tablet 1 Tab PO BID Aspir 81 (Aspirin) 81 Mg Tablet.dr 1 Tab PO DAILY Metoprolol Tartrate 25 Mg Tablet 25 Mg PO BID Atorvastatin Calcium 40 Mg Tablet 1 Tab PO QHS Vitals/I & O Vital Sign - Last 24 Hours 12/03/16 12/03/16 12/03/16 12/03/16 18:55 19:00 19:30 20:00 Temp 98.3 98.3 Pulse 109 96 92 88 Resp 20 B/P (MAP) 141/79 (99) 137/76 (96) 126/78 (94) 144/84 (104) Pulse Ox 93 93 92 93 O2 Delivery Room Air Room Air 12/03/16 12/03/16 12/03/16 12/03/16 20:30 20:41 21:40 21:40 Temp 98.0 98.0 Pulse 84 80 83 Resp 20 B/P (MAP) 139/89 (106) 139/89 150/89 (109) Pulse Ox 95 93 O2 Delivery Room Air Room Air 12/03/16 12/04/16 12/04/16 12/04/16 23:20 03:45 07:12 10:03 Temp 97.6 97.7 97.6 97.6 97.7 97.6 Pulse 71 68 78 78 Resp 18 18 18 B/P (MAP) 106/72 (83) 99/62 (74) 120/72 (88) 120/72 Pulse Ox 93 92 94 O2 Delivery Room Air Room Air Room Air 12/04/16 12/04/16 12/04/16 10:03 10:04 10:31 Temp 97.4 97.4 Pulse 78 78 79 Resp 20 B/P (MAP) 120/72 120/72 112/77 (89) Pulse Ox 95 O2 Delivery Room Air Intake and Output 12/03/16 12/03/16 12/04/16 14:59 22:59 06:59 Intake Total 60 ml Balance 60 ml ANAMIKA POND MD Dec 04, 2016 12:54
[2016-12-04] MEDS: INSULIN ASPART 300 UNITS/3 ML INSULN.PEN SQ SCH ×4 (13:00→21:00)
[2016-12-04 14:34] VITALS: BP 114/75
[2016-12-04 19:44] VITALS: BP 135/80
[2016-12-04] MEDS: diphenhydrAMINE HCL 25 MG CAPSULE PO SCH (20:55)
[2016-12-04] MEDS: ATORVASTATIN CALCIUM 40 MG TABLET. PO SCH (20:55)
[2016-12-04] MEDS: ZOLPIDEM 5 MG TABLET. PO PRN (20:55)
[2016-12-04] MEDS ORDERED: INSULIN DETEMIR 300 UNITS/3 ML INSULN.PEN. SQ SCH (21:00)
[2016-12-04] MEDS: INSULIN DETEMIR 300 UNITS/3 ML INSULN.PEN. SQ SCH (21:07)
[2016-12-04 23:13] VITALS: BP 110/71
[2016-12-05] MEDS: HEPARIN 25,000UTS/500ML PREMIX 500 ML IV PRN ×2 (02:56→13:28)
[2016-12-05 02:57] VITALS: BP 100/66
[2016-12-05 07:43] VITALS: BP 118/78
[2016-12-05] MEDS: ALLOPURINOL 300 MG TABLET. PO SCH (08:29)
[2016-12-05] MEDS: LINAGLIPTIN 5 MG TABLET PO SCH (08:29)
[2016-12-05] MEDS: LISINOPRIL 20 MG TABLET PO SCH ×2 (08:30→20:36)
[2016-12-05] MEDS: hydroCHLOROthiazide 12.5 MG CAPSULE PO SCH ×2 (08:30→20:36)
[2016-12-05] MEDS: ASPIRIN ENTERIC COATED 81 MG TABLET.DR. PO SCH (08:30)
[2016-12-05] MEDS: METOPROLOL TART IMMED RELEASE 25 MG TABLET. PO SCH ×2 (08:31→20:36)
[2016-12-05] MEDS: INSULIN ASPART 300 UNITS/3 ML INSULN.PEN SQ SCH ×4 (08:36→21:00)
[2016-12-05 10:19] VITALS: BP 140/83
--- NOTE | 2016-12-05 12:32 | PDOC ---
PROGRESS NOTES Subjective Subjective Feeling better. Denied any chest pain today Objective Objective Vital Signs Date Time Temp Pulse Resp B/P (MAP) Pulse Ox O2 Delivery O2 Flow Rate FiO2 12/05/16 10:19 98.3 68 18 140/83 (102) 94 Room Air 98.3 Intake and Output 12/05/16 07:00 Intake Total 1000 ml Balance 1000 ml Intake Oral 1000 ml # Voids 6 Physical Exam Abdomen: Soft, No tenderness Heart: Regular rate (SR), Normal S1, Normal S2, Other (3/6 systolic murmur to CHARY border) Extremities: No cyanosis, Other (1+ pitting edema) General: Alert, Oriented X3, Cooperative, No acute distress HEENT: Mucous membr. moist/pink Lungs: Clear to auscultation, Normal air movement Neuro: Normal speech, Sensation intact Psych/Mental Status: Mental status NL, Mood NL Skin: No breakdown, No significant lesion Assessment Assessment 1. NSTEMI: presently CP free. h/o CAD: 2011 PCI/FRANCIE LAD, 2013 [place] with FRANCIE to RCA. Plan for cardiac cath and possible PCI tomorrow. Risks and benefits explained. 2. Mild acute on chronic diastolic heart failure: diurese gently 3. HTN: controlled 4. HLP - statins 5. DM2: per IM Plan Plan of Care Problems Medical Problems: (1) Unstable angina Status: Acute Comment Review of Relevant I have reviewed the following items stacey (where applicable) has been applied. Labs Laboratory Tests Test 12/04/16 15:40 12/04/16 16:30 12/04/16 17:31 12/04/16 20:58 Glucose (Fingerstick) 179 mg/dL (70-99) 160 mg/dL (70-99) 185 mg/dL (70-99) Heparin Anti-Xa Act, Unfractionated 0.21 IU/mL (0.30-0.70) Test 12/04/16 23:15 12/05/16 02:40 12/05/16 07:46 12/05/16 09:00 Heparin Anti-Xa Act, Unfractionated 0.28 IU/mL (0.30-0.70) 0.36 IU/mL (0.30-0.70) 0.52 IU/mL (0.30-0.70) Glucose (Fingerstick) 184 mg/dL (70-99) Test 12/05/16 11:39 Glucose (Fingerstick) 197 mg/dL (70-99) Medications Current Medications Atorvastatin Calcium (Lipitor) 40 mg QHS PO Last administered on 12/04/16 20: 55; Start 12/04/16 at 21:00 Dextrose (Dextrose 50%-Water Syringe) 12.5 gm PRN Q15MIN PRN IV SEE COMMENTS; Start 12/04/16 at 12:45; Status UNV Diphenhydramine HCl (Benadryl) 25 mg HS PO Last administered on 12/04/16 20:55 ; Start 12/04/16 at 21:00 Insulin Aspart (NovoLOG) 0-9 UNITS QIDACHS SQ Last administered on 12/05/16 12 :17; Start 12/04/16 at 13:00 Insulin Detemir (Levemir) 12 units QHS SQ ; Start 12/04/16 at 21:00; Stop at 21:00; Status DC Insulin Detemir (Levemir) 25 units QHS SQ Last administered on 12/04/16 21:07 ; Start 12/04/16 at 21:00 Vitals/I & O Vital Sign - Last 24 Hours 12/04/16 12/04/16 12/04/16 12/04/16 14:34 19:40 19:44 20:55 Temp 98.0 98.2 98.0 98.2 Pulse 76 81 81 Resp 19 18 B/P (MAP) 114/75 (88) 135/80 (98) 135/80 Pulse Ox 92 95 O2 Delivery Room Air Room Air Room Air 12/04/16 12/04/16 12/05/16 12/05/16 20:55 23:13 02:57 07:43 Temp 98.3 98.2 97.7 98.3 98.2 97.7 Pulse 81 77 80 70 Resp 18 18 19 B/P (MAP) 135/80 110/71 (84) 100/66 (77) 118/78 (91) Pulse Ox 96 91 93 O2 Delivery Room Air Room Air Room Air 12/05/16 12/05/16 12/05/16 12/05/16 08:05 08:30 08:30 08:31 Pulse 70 70 70 B/P (MAP) 118/78 118/78 118/78 O2 Delivery Room Air 12/05/16 10:19 Temp 98.3 98.3 Pulse 68 Resp 18 B/P (MAP) 140/83 (102) Pulse Ox 94 O2 Delivery Room Air Intake and Output 12/04/16 12/04/16 12/05/16 15:00 23:00 07:00 Intake Total 1000 ml Balance 1000 ml TRICIA CASTILLO MD Dec 05, 2016 12:32
--- NOTE | 2016-12-05 12:55 | PDOC ---
PROGRESS NOTES Chief Complaint Chief Complaint angina, unstable CAD troponin elevation, NSTEMI Dm2, obesity, BMI 38 History of Present Illness History of Present Illness trop to near 1, same, then tapered cont heparin gtt, no pain, feels well sched for cath on tuesday, Vitals Vitals Vital Signs Date Time Temp Pulse Resp B/P (MAP) Pulse Ox O2 Delivery O2 Flow Rate FiO2 12/05/16 10:19 98.3 68 18 140/83 (102) 94 Room Air 98.3 Physical Exam General: Alert, Oriented X3, Cooperative, No acute distress Heart: Regular rate (SR), Normal S1, Normal S2, Other (3/6 systolic murmur to CHARY border) Lungs: Clear Abdomen: Soft, No tenderness Extremities: No cyanosis, No edema Skin: No breakdown, No significant lesion Labs LABS Laboratory Tests Test 12/04/16 15:40 12/04/16 16:30 12/04/16 17:31 12/04/16 20:58 Glucose (Fingerstick) 179 mg/dL (70-99) 160 mg/dL (70-99) 185 mg/dL (70-99) Heparin Anti-Xa Act, Unfractionated 0.21 IU/mL (0.30-0.70) Test 12/04/16 23:15 12/05/16 02:40 12/05/16 07:46 12/05/16 09:00 Heparin Anti-Xa Act, Unfractionated 0.28 IU/mL (0.30-0.70) 0.36 IU/mL (0.30-0.70) 0.52 IU/mL (0.30-0.70) Glucose (Fingerstick) 184 mg/dL (70-99) Test 12/05/16 11:39 Glucose (Fingerstick) 197 mg/dL (70-99) Review of Systems Review of Systems no n/v/d Assessment and Plan Assessmemt and Plan Problems Medical Problems: (1) Unstable angina Status: Acute Problems: Comment Review of Relevant I have reviewed the following items stacey (where applicable) has been applied. Labs Laboratory Tests Test 12/03/16 19:18 12/03/16 21:52 12/04/16 02:10 12/04/16 07:14 White Blood Count 10.4 x10^3/uL (4.0-11.0) Red Blood Count 4.93 x10^6/uL (4.30-5.70) Hemoglobin 14.8 g/dL (13.0-17.5) Hematocrit 45.2 % (39.0-53.0) Mean Corpuscular Volume 92 fL (79-100) Mean Corpuscular Hemoglobin 30 pg (25-35) Mean Corpuscular Hemoglobin Concent 33 g/dL (31-37) Red Cell Distribution Width 15.0 % (11.5-14.5) Platelet Count 341 x10^3/uL (140-400) Neutrophils (%) (Auto) 79 % (31-73) Lymphocytes (%) (Auto) 12 % (24-48) Monocytes (%) (Auto) 7 % (0-9) Eosinophils (%) (Auto) 2 % (0-3) Basophils (%) (Auto) 1 % (0-3) Neutrophils # (Auto) 8.2 x10^3uL (1.8-7.7) Lymphocytes # (Auto) 1.2 x10^3/uL (1.0-4.8) Monocytes # (Auto) 0.7 x10^3/uL (0.0-1.1) Eosinophils # (Auto) 0.2 x10^3/uL (0.0-0.7) Basophils # (Auto) 0.1 x10^3/uL (0.0-0.2) Sodium Level 140 mmol/L (136-145) Potassium Level 4.4 mmol/L (3.5-5.1) Chloride Level 100 mmol/L (98-107) Carbon Dioxide Level 28 mmol/L (21-32) Anion Gap 12 (6-14) Blood Urea Nitrogen 22 mg/dL (8-26) Creatinine 0.9 mg/dL (0.7-1.3) Estimated GFR (Cockcroft-Gault) 84.4 BUN/Creatinine Ratio 24 (6-20) Glucose Level 343 mg/dL (70-99) Calcium Level 9.2 mg/dL (8.5-10.1) Total Bilirubin 0.2 mg/dL (0.2-1.0) Aspartate Amino Transf (AST/SGOT) 19 U/L (15-37) Alanine Aminotransferase (ALT/SGPT) 32 U/L (16-63) Alkaline Phosphatase 46 U/L (46-116) Troponin I Quantitative < 0.017 ng/mL (0.000-0.055) 0.973 ng/mL (0.000-0.055) Total Protein 7.3 g/dL (6.4-8.2) Albumin 4.2 g/dL (3.4-5.0) Albumin/Globulin Ratio 1.4 (1.0-1.7) Glucose (Fingerstick) 219 mg/dL (70-99) 165 mg/dL (70-99) Test 12/04/16 07:50 12/04/16 11:34 12/04/16 15:40 12/04/16 16:30 Magnesium Level 1.9 mg/dL (1.8-2.4) Troponin I Quantitative 0.929 ng/mL (0.000-0.055) Triglycerides Level 120 mg/dL (0-150) Cholesterol Level 131 mg/dL (0-200) LDL Cholesterol, Calculated 71 mg/dL (0-100) VLDL Cholesterol, Calculated 24 mg/dL (0-40) Non-HDL Cholesterol Calculated 95 mg/dL (0-129) HDL Cholesterol 36 mg/dL (40-60) Cholesterol/HDL Ratio 3.6 Thyroid Stimulating Hormone (TSH) 3.439 uIU/mL (0.358-3.74) Glucose (Fingerstick) 245 mg/dL (70-99) 179 mg/dL (70-99) Heparin Anti-Xa Act, Unfractionated 0.21 IU/mL (0.30-0.70) Test 12/04/16 17:31 12/04/16 20:58 12/04/16 23:15 12/05/16 02:40 Glucose (Fingerstick) 160 mg/dL (70-99) 185 mg/dL (70-99) Heparin Anti-Xa Act, Unfractionated 0.28 IU/mL (0.30-0.70) 0.36 IU/mL (0.30-0.70) Test 12/05/16 07:46 12/05/16 09:00 12/05/16 11:39 Glucose (Fingerstick) 184 mg/dL (70-99) 197 mg/dL (70-99) Heparin Anti-Xa Act, Unfractionated 0.52 IU/mL (0.30-0.70) Laboratory Tests Test 12/04/16 15:40 12/04/16 16:30 12/04/16 17:31 12/04/16 20:58 Glucose (Fingerstick) 179 mg/dL (70-99) 160 mg/dL (70-99) 185 mg/dL (70-99) Heparin Anti-Xa Act, Unfractionated 0.21 IU/mL (0.30-0.70) Test 12/04/16 23:15 12/05/16 02:40 12/05/16 07:46 12/05/16 09:00 Heparin Anti-Xa Act, Unfractionated 0.28 IU/mL (0.30-0.70) 0.36 IU/mL (0.30-0.70) 0.52 IU/mL (0.30-0.70) Glucose (Fingerstick) 184 mg/dL (70-99) Test 12/05/16 11:39 Glucose (Fingerstick) 197 mg/dL (70-99) Medications Current Medications Ondansetron HCl (Zofran) 4 mg PRN Q8HRS PRN IV NAUSEA/VOMITING; Start 12/03/16 at 20:15; Stop 12/04/16 at 20:14; Status DC Morphine Sulfate 2 mg PRN Q2HR PRN IV PAIN; Start 12/03/16 at 20:15; Stop 12/04 at 20:14; Status DC Acetaminophen (Tylenol) 650 mg PRN Q4HRS PRN PO FEVER; Start 12/03/16 at 20:15 ; Stop 12/04/16 at 20:14; Status DC Nitroglycerin (Nitrostat) 0.4 mg PRN Q5MIN PRN SL CHEST PAIN; Start 12/03/16 at 20:15; Stop 12/04/16 at 20:14; Status DC Aspirin (Children'S Aspirin) 324 mg 1X ONCE PO Last administered on 12/03/16 20:34; Start 12/03/16 at 20:15; Stop 12/03/16 at 20:16; Status DC Nitroglycerin (Nitro-Bid Oint) 1 inch 1X ONCE TP Last administered on 20:41; Start 12/03/16 at 20:15; Stop 12/03/16 at 20:16; Status DC Allopurinol (Zyloprim) 300 mg DAILY PO Last administered on 12/05/16 08:29; Start 12/04/16 at 09:00 Aspirin (Ecotrin) 81 mg DAILY PO Last administered on 12/05/16 08:30; Start at 09:00 Atorvastatin Calcium (Lipitor) 40 mg QHS PO Last administered on 12/04/16 20: 55; Start 12/04/16 at 21:00 Diphenhydramine HCl (Benadryl) 25 mg HS PO Last administered on 12/04/16 20:55 ; Start 12/04/16 at 21:00 Linagliptin (Tradjenta) 5 mg DAILY PO Last administered on 12/05/16 08:29; Start 12/04/16 at 09:00 Metformin HCl (Glucophage) 1,000 mg BIDWMEALS PO Last administered on 17:00; Start 12/04/16 at 08:00; Stop 12/05/16 at 17:00 Metoprolol Tartrate (Lopressor) 25 mg BID PO Last administered on 12/05/16 08: 31; Start 12/04/16 at 09:00 Lisinopril (Prinivil) 20 mg BID PO Last administered on 12/05/16 08:30; Start 12/04/16 at 09:00 Nifedipine (Procardia Xl) 90 mg DAILY PO Last administered on 12/05/16 08:30; Start 12/04/16 at 09:00 Zolpidem Tartrate (Ambien) 5 mg PRN QHS PRN PO INSOMNIA Last administered on 20:55; Start 12/03/16 at 22:45 Hydrochlorothiazide (Microzide) 12.5 mg BID PO Last administered on 12/05/16 08:30; Start 12/04/16 at 09:00 Dextrose (Dextrose 50%-Water Syringe) 12.5 gm PRN Q15MIN PRN IV SEE COMMENTS; Start 12/04/16 at 07:00 Heparin Sodium/ Dextrose 500 ml @ 0 mls/hr CONT PRN IV SEE I/O RECORD Last administered on 12/05/16 02:56; Start 12/04/16 at 09:15 Heparin Sodium (Porcine) (Heparin Sodium) 3,200 unit PRN Q6HRS PRN IV FOR UFH LEVEL LESS THAN 0.2; Start 12/04/16 at 09:15 Info (Anti-Coagulation Monitoring By Pharmacy) 1 each PRN DAILY PRN MC SEE COMMENTS; Start 12/04/16 at 09:15 Insulin Aspart (NovoLOG) 0-9 UNITS QIDACHS SQ Last administered on 12/05/16 12 :17; Start 12/04/16 at 13:00 Dextrose (Dextrose 50%-Water Syringe) 12.5 gm PRN Q15MIN PRN IV SEE COMMENTS; Start 12/04/16 at 12:45; Status UNV Insulin Detemir (Levemir) 12 units QHS SQ ; Start 12/04/16 at 21:00; Stop at 21:00; Status DC Insulin Detemir (Levemir) 25 units QHS SQ Last administered on 12/04/16 21:07 ; Start 12/04/16 at 21:00 Active Scripts Active Reported Sleep Aid (Doxylamine Succinate) 25 Mg Tablet 25 Mg PO HS Procardia Xl (Nifedipine) 90 Mg Tab.er.24 1 Tab PO DAILY Lisinopril-Hctz 20-12.5 Mg Tab (Lisinopril/Hydrochlorothiazide) 1 Each Tablet 1 Tab PO BID Toujeo Solostar (Insulin Glargine,Hum.rec.anlog) 300 Unit/1 Ml Insuln.pen 25 Unit SQ DAILY08 Tradjenta (Linagliptin) 5 Mg Tablet 1 Tab PO DAILY Allopurinol 300 Mg Tablet 1 Tab PO DAILY Metformin Hcl 1,000 Mg Tablet 1 Tab PO BID Aspir 81 (Aspirin) 81 Mg Tablet.dr 1 Tab PO DAILY Metoprolol Tartrate 25 Mg Tablet 25 Mg PO BID Atorvastatin Calcium 40 Mg Tablet 1 Tab PO QHS Vitals/I & O Vital Sign - Last 24 Hours 12/04/16 12/04/16 12/04/16 12/04/16 14:34 19:40 19:44 20:55 Temp 98.0 98.2 98.0 98.2 Pulse 76 81 81 Resp 19 18 B/P (MAP) 114/75 (88) 135/80 (98) 135/80 Pulse Ox 92 95 O2 Delivery Room Air Room Air Room Air 8/19/12/04/16 12/05/16 12/05/16 20:55 23:13 02:57 07:43 Temp 98.3 98.2 97.7 98.3 98.2 97.7 Pulse 81 77 80 70 Resp 18 18 19 B/P (MAP) 135/80 110/71 (84) 100/66 (77) 118/78 (91) Pulse Ox 96 91 93 O2 Delivery Room Air Room Air Room Air 12/05/16 12/05/16 12/05/16 12/05/16 08:05 08:30 08:30 08:31 Pulse 70 70 70 B/P (MAP) 118/78 118/78 118/78 O2 Delivery Room Air 12/05/16 10:19 Temp 98.3 98.3 Pulse 68 Resp 18 B/P (MAP) 140/83 (102) Pulse Ox 94 O2 Delivery Room Air Intake and Output 12/04/16 12/04/16 12/05/16 15:00 23:00 07:00 Intake Total 1000 ml Balance 1000 ml ANAMIKA POND MD Dec 05, 2016 12:55
[2016-12-05 14:22] VITALS: BP 117/77
[2016-12-05] MEDS ORDERED: FUROSEMIDE 40 MG/4 ML VIAL. IVP ONE (17:30)
[2016-12-05 19:56] VITALS: BP 109/83
[2016-12-05] MEDS: ATORVASTATIN CALCIUM 40 MG TABLET. PO SCH (20:35)
[2016-12-05] MEDS: diphenhydrAMINE HCL 25 MG CAPSULE PO SCH (20:35)
[2016-12-05] MEDS: ZOLPIDEM 5 MG TABLET. PO PRN (20:36)
[2016-12-05] MEDS: INSULIN DETEMIR 300 UNITS/3 ML INSULN.PEN. SQ SCH (20:39)
[2016-12-05 22:49] VITALS: BP 119/78
[2016-12-06] VITALS (13 sets, daily range): BP systolic 105–142; BP diastolic 67–89
[2016-12-06] MEDS: HEPARIN 25,000UTS/500ML PREMIX 500 ML IV PRN ×2 (01:37→14:44)
[2016-12-06 07:00] LABS: BASO # 0.1 x10^3/uL (0.0-0.2); BASO % 1 % (0-3); EOS % 3 % (0-3); HEMATOCRIT 43.2 % (39.0-53.0); HEMOGLOBIN 14.2 g/dL (13.0-17.5); LYMPH # 1.9 x10^3/uL (1.0-4.8); LYMPH % 19 % (24-48); MEAN CORPUSCULAR HEMOGLOBIN 30 pg (25-35); MEAN CORPUSCULAR HGB CONC 33 g/dL (31-37); MEAN CORPUSCULAR VOLUME 90 fL (79-100); MONO % 8 % (0-9); NEUT % 69 % (31-73); PLATELET COUNT 300 x10^3/uL (140-400); RED BLOOD COUNT 4.79 x10^6/uL (4.30-5.70); WHITE BLOOD COUNT 9.8 x10^3/uL (4.0-11.0)
[2016-12-06] MEDS: INSULIN ASPART 300 UNITS/3 ML INSULN.PEN SQ SCH ×6 (07:30→20:56)
[2016-12-06 07:37] LABS: ALBUMIN 3.6 g/dL (3.4-5.0); CALCIUM 9.5 mg/dL (8.5-10.1); CREATININE 0.8 mg/dL (0.7-1.3); GFR 96.7; POTASSIUM 3.9 mmol/L (3.5-5.1); TOTAL BILIRUBIN 0.4 mg/dL (0.2-1.0); TOTAL PROTEIN 7.1 g/dL (6.4-8.2)
[2016-12-06] MEDS: hydroCHLOROthiazide 12.5 MG CAPSULE PO SCH ×2 (08:35→20:48)
[2016-12-06] MEDS: ASPIRIN ENTERIC COATED 81 MG TABLET.DR. PO SCH (08:38)
[2016-12-06] MEDS: METOPROLOL TART IMMED RELEASE 25 MG TABLET. PO SCH ×2 (08:38→20:49)
[2016-12-06] MEDS: ALLOPURINOL 300 MG TABLET. PO SCH (09:00)
[2016-12-06] MEDS: LISINOPRIL 20 MG TABLET PO SCH ×2 (09:00→20:47)
[2016-12-06] MEDS: LINAGLIPTIN 5 MG TABLET PO SCH (09:00)
--- NOTE | 2016-12-06 09:42 | PDOC ---
PROGRESS NOTES Chief Complaint Chief Complaint angina, unstable CAD hx with 2 indwelling stents NSTEMI Dm2, uncontrolled obesity, BMI 38 History of Present Illness History of Present Illness NO chest pains Heparin gtt running VS ok TRop up Dr. Mix is his cards BS mid 200s LAst hgba1c was 6 .9 in 2013 PLAN: Start novolog 5 TID Recheck hgba1c CAth later Keep NPO Dw pt and at bedside Stool softener Vitals Vitals Vital Signs Date Time Temp Pulse Resp B/P (MAP) Pulse Ox O2 Delivery O2 Flow Rate FiO2 12/06/16 08:38 75 108/67 12/06/16 07:00 97.5 20 100 97.5 12/06/16 02:13 Room Air Physical Exam General: Alert, Oriented X3, Cooperative, No acute distress Heart: Regular rate (SR), Normal S1, Normal S2, Other (3/6 systolic murmur to CHARY border) Lungs: Clear Abdomen: Soft, No tenderness Extremities: No cyanosis, Other (1+ pitting edema) Skin: No breakdown, No significant lesion Labs LABS Laboratory Tests Test 12/05/16 11:39 12/05/16 14:45 12/05/16 16:44 12/05/16 20:35 Glucose (Fingerstick) 197 mg/dL (70-99) 162 mg/dL (70-99) 187 mg/dL (70-99) Heparin Anti-Xa Act, Unfractionated 0.50 IU/mL (0.30-0.70) Test 12/06/16 05:25 12/06/16 08:06 White Blood Count 9.8 x10^3/uL (4.0-11.0) Red Blood Count 4.79 x10^6/uL (4.30-5.70) Hemoglobin 14.2 g/dL (13.0-17.5) Hematocrit 43.2 % (39.0-53.0) Mean Corpuscular Volume 90 fL (79-100) Mean Corpuscular Hemoglobin 30 pg (25-35) Mean Corpuscular Hemoglobin Concent 33 g/dL (31-37) Red Cell Distribution Width 15.0 % (11.5-14.5) Platelet Count 300 x10^3/uL (140-400) Neutrophils (%) (Auto) 69 % (31-73) Lymphocytes (%) (Auto) 19 % (24-48) Monocytes (%) (Auto) 8 % (0-9) Eosinophils (%) (Auto) 3 % (0-3) Basophils (%) (Auto) 1 % (0-3) Neutrophils # (Auto) 6.8 x10^3uL (1.8-7.7) Lymphocytes # (Auto) 1.9 x10^3/uL (1.0-4.8) Monocytes # (Auto) 0.8 x10^3/uL (0.0-1.1) Eosinophils # (Auto) 0.3 x10^3/uL (0.0-0.7) Basophils # (Auto) 0.1 x10^3/uL (0.0-0.2) Heparin Anti-Xa Act, Unfractionated 0.40 IU/mL (0.30-0.70) Sodium Level 138 mmol/L (136-145) Potassium Level 3.9 mmol/L (3.5-5.1) Chloride Level 100 mmol/L (98-107) Carbon Dioxide Level 29 mmol/L (21-32) Anion Gap 9 (6-14) Blood Urea Nitrogen 23 mg/dL (8-26) Creatinine 0.8 mg/dL (0.7-1.3) Estimated GFR (Cockcroft-Gault) 96.7 BUN/Creatinine Ratio 29 (6-20) Glucose Level 179 mg/dL (70-99) Calcium Level 9.5 mg/dL (8.5-10.1) Total Bilirubin 0.4 mg/dL (0.2-1.0) Aspartate Amino Transf (AST/SGOT) 21 U/L (15-37) Alanine Aminotransferase (ALT/SGPT) 31 U/L (16-63) Alkaline Phosphatase 37 U/L (46-116) Total Protein 7.1 g/dL (6.4-8.2) Albumin 3.6 g/dL (3.4-5.0) Albumin/Globulin Ratio 1.0 (1.0-1.7) Glucose (Fingerstick) 223 mg/dL (70-99) Review of Systems Review of Systems denies 14 pt reviewed Assessment and Plan Assessmemt and Plan Problems Medical Problems: (1) Unstable angina Status: Acute Problems: Comment Review of Relevant I have reviewed the following items stacey (where applicable) has been applied. Labs Laboratory Tests Test 12/04/16 11:34 12/04/16 15:40 12/04/16 16:30 12/04/16 17:31 Glucose (Fingerstick) 245 mg/dL (70-99) 179 mg/dL (70-99) 160 mg/dL (70-99) Heparin Anti-Xa Act, Unfractionated 0.21 IU/mL (0.30-0.70) Test 12/04/16 20:58 12/04/16 23:15 12/05/16 02:40 12/05/16 07:46 Glucose (Fingerstick) 185 mg/dL (70-99) 184 mg/dL (70-99) Heparin Anti-Xa Act, Unfractionated 0.28 IU/mL (0.30-0.70) 0.36 IU/mL (0.30-0.70) Test 12/05/16 09:00 12/05/16 11:39 12/05/16 14:45 12/05/16 16:44 Heparin Anti-Xa Act, Unfractionated 0.52 IU/mL (0.30-0.70) 0.50 IU/mL (0.30-0.70) Glucose (Fingerstick) 197 mg/dL (70-99) 162 mg/dL (70-99) Test 12/05/16 20:35 12/06/16 05:25 12/06/16 08:06 Glucose (Fingerstick) 187 mg/dL (70-99) 223 mg/dL (70-99) White Blood Count 9.8 x10^3/uL (4.0-11.0) Red Blood Count 4.79 x10^6/uL (4.30-5.70) Hemoglobin 14.2 g/dL (13.0-17.5) Hematocrit 43.2 % (39.0-53.0) Mean Corpuscular Volume 90 fL (79-100) Mean Corpuscular Hemoglobin 30 pg (25-35) Mean Corpuscular Hemoglobin Concent 33 g/dL (31-37) Red Cell Distribution Width 15.0 % (11.5-14.5) Platelet Count 300 x10^3/uL (140-400) Neutrophils (%) (Auto) 69 % (31-73) Lymphocytes (%) (Auto) 19 % (24-48) Monocytes (%) (Auto) 8 % (0-9) Eosinophils (%) (Auto) 3 % (0-3) Basophils (%) (Auto) 1 % (0-3) Neutrophils # (Auto) 6.8 x10^3uL (1.8-7.7) Lymphocytes # (Auto) 1.9 x10^3/uL (1.0-4.8) Monocytes # (Auto) 0.8 x10^3/uL (0.0-1.1) Eosinophils # (Auto) 0.3 x10^3/uL (0.0-0.7) Basophils # (Auto) 0.1 x10^3/uL (0.0-0.2) Heparin Anti-Xa Act, Unfractionated 0.40 IU/mL (0.30-0.70) Sodium Level 138 mmol/L (136-145) Potassium Level 3.9 mmol/L (3.5-5.1) Chloride Level 100 mmol/L (98-107) Carbon Dioxide Level 29 mmol/L (21-32) Anion Gap 9 (6-14) Blood Urea Nitrogen 23 mg/dL (8-26) Creatinine 0.8 mg/dL (0.7-1.3) Estimated GFR (Cockcroft-Gault) 96.7 BUN/Creatinine Ratio 29 (6-20) Glucose Level 179 mg/dL (70-99) Calcium Level 9.5 mg/dL (8.5-10.1) Total Bilirubin 0.4 mg/dL (0.2-1.0) Aspartate Amino Transf (AST/SGOT) 21 U/L (15-37) Alanine Aminotransferase (ALT/SGPT) 31 U/L (16-63) Alkaline Phosphatase 37 U/L (46-116) Total Protein 7.1 g/dL (6.4-8.2) Albumin 3.6 g/dL (3.4-5.0) Albumin/Globulin Ratio 1.0 (1.0-1.7) Laboratory Tests Test 12/05/16 11:39 12/05/16 14:45 12/05/16 16:44 12/05/16 20:35 Glucose (Fingerstick) 197 mg/dL (70-99) 162 mg/dL (70-99) 187 mg/dL (70-99) Heparin Anti-Xa Act, Unfractionated 0.50 IU/mL (0.30-0.70) Test 12/06/16 05:25 12/06/16 08:06 White Blood Count 9.8 x10^3/uL (4.0-11.0) Red Blood Count 4.79 x10^6/uL (4.30-5.70) Hemoglobin 14.2 g/dL (13.0-17.5) Hematocrit 43.2 % (39.0-53.0) Mean Corpuscular Volume 90 fL (79-100) Mean Corpuscular Hemoglobin 30 pg (25-35) Mean Corpuscular Hemoglobin Concent 33 g/dL (31-37) Red Cell Distribution Width 15.0 % (11.5-14.5) Platelet Count 300 x10^3/uL (140-400) Neutrophils (%) (Auto) 69 % (31-73) Lymphocytes (%) (Auto) 19 % (24-48) Monocytes (%) (Auto) 8 % (0-9) Eosinophils (%) (Auto) 3 % (0-3) Basophils (%) (Auto) 1 % (0-3) Neutrophils # (Auto) 6.8 x10^3uL (1.8-7.7) Lymphocytes # (Auto) 1.9 x10^3/uL (1.0-4.8) Monocytes # (Auto) 0.8 x10^3/uL (0.0-1.1) Eosinophils # (Auto) 0.3 x10^3/uL (0.0-0.7) Basophils # (Auto) 0.1 x10^3/uL (0.0-0.2) Heparin Anti-Xa Act, Unfractionated 0.40 IU/mL (0.30-0.70) Sodium Level 138 mmol/L (136-145) Potassium Level 3.9 mmol/L (3.5-5.1) Chloride Level 100 mmol/L (98-107) Carbon Dioxide Level 29 mmol/L (21-32) Anion Gap 9 (6-14) Blood Urea Nitrogen 23 mg/dL (8-26) Creatinine 0.8 mg/dL (0.7-1.3) Estimated GFR (Cockcroft-Gault) 96.7 BUN/Creatinine Ratio 29 (6-20) Glucose Level 179 mg/dL (70-99) Calcium Level 9.5 mg/dL (8.5-10.1) Total Bilirubin 0.4 mg/dL (0.2-1.0) Aspartate Amino Transf (AST/SGOT) 21 U/L (15-37) Alanine Aminotransferase (ALT/SGPT) 31 U/L (16-63) Alkaline Phosphatase 37 U/L (46-116) Total Protein 7.1 g/dL (6.4-8.2) Albumin 3.6 g/dL (3.4-5.0) Albumin/Globulin Ratio 1.0 (1.0-1.7) Glucose (Fingerstick) 223 mg/dL (70-99) Medications Current Medications Ondansetron HCl (Zofran) 4 mg PRN Q8HRS PRN IV NAUSEA/VOMITING; Start 12/03/16 at 20:15; Stop 12/04/16 at 20:14; Status DC Morphine Sulfate 2 mg PRN Q2HR PRN IV PAIN; Start 12/03/16 at 20:15; Stop 12/04 at 20:14; Status DC Acetaminophen (Tylenol) 650 mg PRN Q4HRS PRN PO FEVER; Start 12/03/16 at 20:15 ; Stop 12/04/16 at 20:14; Status DC Nitroglycerin (Nitrostat) 0.4 mg PRN Q5MIN PRN SL CHEST PAIN; Start 12/03/16 at 20:15; Stop 12/04/16 at 20:14; Status DC Aspirin (Children'S Aspirin) 324 mg 1X ONCE PO Last administered on 12/03/16 20:34; Start 12/03/16 at 20:15; Stop 12/03/16 at 20:16; Status DC Nitroglycerin (Nitro-Bid Oint) 1 inch 1X ONCE TP Last administered on 20:41; Start 12/03/16 at 20:15; Stop 12/03/16 at 20:16; Status DC Allopurinol (Zyloprim) 300 mg DAILY PO Last administered on 12/05/16 08:29; Start 12/04/16 at 09:00 Aspirin (Ecotrin) 81 mg DAILY PO Last administered on 12/06/16 08:38; Start at 09:00 Atorvastatin Calcium (Lipitor) 40 mg QHS PO Last administered on 12/05/16 20: 35; Start 12/04/16 at 21:00 Diphenhydramine HCl (Benadryl) 25 mg HS PO Last administered on 12/05/16 20:35 ; Start 12/04/16 at 21:00 Linagliptin (Tradjenta) 5 mg DAILY PO Last administered on 12/05/16 08:29; Start 12/04/16 at 09:00 Metformin HCl (Glucophage) 1,000 mg BIDWMEALS PO Last administered on 17:00; Start 12/04/16 at 08:00; Stop 12/05/16 at 17:00; Status DC Metoprolol Tartrate (Lopressor) 25 mg BID PO Last administered on 12/06/16 08: 38; Start 12/04/16 at 09:00 Lisinopril (Prinivil) 20 mg BID PO Last administered on 12/05/16 20:36; Start 12/04/16 at 09:00 Nifedipine (Procardia Xl) 90 mg DAILY PO Last administered on 12/06/16 08:38; Start 12/04/16 at 09:00 Zolpidem Tartrate (Ambien) 5 mg PRN QHS PRN PO INSOMNIA Last administered on 20:36; Start 12/03/16 at 22:45 Hydrochlorothiazide (Microzide) 12.5 mg BID PO Last administered on 12/06/16 08:35; Start 12/04/16 at 09:00 Dextrose (Dextrose 50%-Water Syringe) 12.5 gm PRN Q15MIN PRN IV SEE COMMENTS; Start 12/04/16 at 07:00 Heparin Sodium/ Dextrose 500 ml @ 0 mls/hr CONT PRN IV SEE I/O RECORD Last administered on 12/06/16 01:37; Start 12/04/16 at 09:15 Heparin Sodium (Porcine) (Heparin Sodium) 3,200 unit PRN Q6HRS PRN IV FOR UFH LEVEL LESS THAN 0.2; Start 12/04/16 at 09:15 Info (Anti-Coagulation Monitoring By Pharmacy) 1 each PRN DAILY PRN MC SEE COMMENTS Last administered on 12/05/16 15:16; Start 12/04/16 at 09:15 Insulin Aspart (NovoLOG) 0-9 UNITS QIDACHS SQ Last administered on 12/06/16 07 :30; Start 12/04/16 at 13:00 Dextrose (Dextrose 50%-Water Syringe) 12.5 gm PRN Q15MIN PRN IV SEE COMMENTS; Start 12/04/16 at 12:45; Status UNV Insulin Detemir (Levemir) 12 units QHS SQ ; Start 12/04/16 at 21:00; Stop at 21:00; Status DC Insulin Detemir (Levemir) 25 units QHS SQ Last administered on 12/05/16 20:39 ; Start 12/04/16 at 21:00 Furosemide (Lasix) 40 mg 1X ONCE IVP Last administered on 12/05/16 17:41; Start 12/05/16 at 17:30; Stop 12/05/16 at 17:31; Status DC Insulin Aspart (NovoLOG) 5 units TIDAC SQ ; Start 12/06/16 at 11:30 Active Scripts Active Reported Sleep Aid (Doxylamine Succinate) 25 Mg Tablet 25 Mg PO HS Procardia Xl (Nifedipine) 90 Mg Tab.er.24 1 Tab PO DAILY Lisinopril-Hctz 20-12.5 Mg Tab (Lisinopril/Hydrochlorothiazide) 1 Each Tablet 1 Tab PO BID Toujeo Solostar (Insulin Glargine,Hum.rec.anlog) 300 Unit/1 Ml Insuln.pen 25 Unit SQ DAILY08 Tradjenta (Linagliptin) 5 Mg Tablet 1 Tab PO DAILY Allopurinol 300 Mg Tablet 1 Tab PO DAILY Metformin Hcl 1,000 Mg Tablet 1 Tab PO BID Aspir 81 (Aspirin) 81 Mg Tablet.dr 1 Tab PO DAILY Metoprolol Tartrate 25 Mg Tablet 25 Mg PO BID Atorvastatin Calcium 40 Mg Tablet 1 Tab PO QHS Vitals/I & O Vital Sign - Last 24 Hours 12/05/16 12/05/16 12/05/16 12/05/16 10:19 14:22 19:30 19:56 Temp 98.3 98.4 98.7 98.3 98.4 98.7 Pulse 68 73 96 Resp 18 18 20 B/P (MAP) 140/83 (102) 117/77 (90) 109/83 (92) Pulse Ox 94 95 95 O2 Delivery Room Air Room Air Room Air Room Air 12/05/16 12/05/16 12/05/16 12/06/16 20:36 20:36 22:49 02:13 Temp 98.3 98.0 98.3 98.0 Pulse 96 96 78 71 Resp 20 20 B/P (MAP) 109/83 109/83 119/78 (92) 105/68 (80) Pulse Ox 96 93 O2 Delivery Room Air Room Air 12/06/16 12/06/16 12/06/16 07:00 08:38 08:38 Temp 97.5 97.5 Pulse 75 75 75 Resp 20 B/P (MAP) 108/67 (81) 108/67 108/67 Pulse Ox 100 Intake and Output 12/05/16 12/05/16 12/06/16 15:00 23:00 07:00 Intake Total 1300 ml 240 ml 0 ml Balance 1300 ml 240 ml 0 ml ROBERT ZAZUETA MD Dec 06, 2016 09:42
--- NOTE | 2016-12-06 11:30 | CARD ---
APPROVED REPORT EXAM: Two-dimensional and M-mode echocardiogram with Doppler and color Doppler. Other Information Quality : Fair INDICATION Angina 2D DIMENSIONS RVDd3.0 (2.9-3.5cm)Left Atrium(2D)4.1 (1.6-4.0cm) IVSd1.1 (0.7-1.1cm)Aortic Root(2D)3.4 (2.0-3.7cm) LVDd6.1 (3.9-5.9cm)LVOT Diameter2.4 (1.8-2.4cm) PWd1.1 (0.7-1.1cm)LVDs5.3 (2.5-4.0cm) FS (%) 17.0 %SV51.9 ml Aortic Valve AoV Peak Javier.184.7cm/sAoV VTI36.0cm AO Peak GR.13.6mmHgLVOT Peak Javier.97.0cm/s AO Mean GR.8mmHgAVA (VMAX)2.40cm2 MIGUELINA (VTI)2.70cm2 Mitral Valve MV E Jgoveovt842.8cm/sMV DECEL [id number] MV A Kysixfif608.3cm/sE/A Ratio0.8 Tricuspid Valve TR P. Kqezyjeh856an/sRAP [id number] TR Peak Gr.31aeHhEIWC05shMp Pulmonary Vein S1 Zsllgmmb47.1cm/sD2 Qrqjclyg22.5cm/s PVa [id number] LEFT VENTRICLE The Left Ventricle is mildly dilated. There is normal left ventricular wall thickness. Basal inferior wall hypokinesis. The ejection fraction is estimated at 45%. Transmitral Doppler flow pattern is Gra de I-abnormal relaxation pattern. RIGHT VENTRICLE The right ventricle is normal size. The right ventricular systolic function is normal. ATRIA The left atrium is mildly dilated. The right atrium size is normal. The interatrial septum is intact with no evidence for an atrial septal defect or patent foramen ovale as noted on 2-D or Doppler imagi ng. AORTIC VALVE The aortic valve is calcified but opens well. Doppler and Color Flow revealed no significant aortic r egurgitation. There is no significant aortic valvular stenosis. MITRAL VALVE The mitral valve is calcified but opens well. There is no evidence of mitral valve prolapse. There is no mitral valve stenosis. Doppler and Color-flow revealed trace mitral regurgitation. TRICUSPID VALVE The tricuspid valve is normal in structure and function. Doppler and Color Flow revealed trace tricus pid regurgitation. There is mild pulmonary hypertension. The PA pressure was estimated at 31 mmHg. Th ere is no tricuspid valve stenosis. PULMONIC VALVE The pulmonary valve is normal in structure and function. Doppler and Color Flow revealed no pulmonic valvular regurgitation. There is no pulmonic valvular stenosis. GREAT VESSELS The aortic root is normal in size. The ascending aorta is mildly dilated at 3.7 cm. The IVC was not v isualized. PERICARDIAL EFFUSION There is no evidence of significant pericardial effusion. Critical Notification Critical Value: No <Conclusion> Basal inferior wall hypokinesis. The ejection fraction is estimated at 45%. Transmitral Doppler flow pattern is Grade I-abnormal relaxation pattern. The left atrium is mildly dilated. Trace mitral regurgitation. Trace tricuspid regurgitation. The PA pressure was estimated at 31 mmHg. There is no evidence of significant pericardial effusion.
[2016-12-06] MEDS ORDERED: NITROGLYCERIN 200 MCG/2 ML SYRINGE FOR CATH/VASC LAB. ONE (15:48)
[2016-12-06] MEDS ORDERED: VERAPAMIL 5 MG/2 ML VIAL. ONE (15:49)
[2016-12-06] MEDS ORDERED: MIDAZOLAM HCL/PF 2 MG/2 ML VIAL. ONE (15:49)
[2016-12-06] MEDS ORDERED: fentaNYL PF VIAL 100 MCG/2 ML VIAL ONE (15:49)
[2016-12-06] MEDS ORDERED: HEPARIN for IV BOLUS 10,000 UNIT/10 ML VIAL. ONE (15:49)
[2016-12-06] MEDS ORDERED: IOHEXOL 300 MG/ML 100ML VIAL. ONE ×2 (15:51→16:26)
[2016-12-06] MEDS ORDERED: LIDOCAINE 2% 20 ML VIAL. ONE (15:51)
--- NOTE | 2016-12-06 15:56 | PDOC ---
MODERATE SEDATION ASSESSMENT RISKS/ALTERNATIVES Risks/Alternatives Risks and alternatives of this type of sedation and procedure discussed with: RISK/ALTERNATIVES: Patient H & P ON CHART H & P H & P on chart and reviewed for co-morbid conditions and appropriate labs. H&P ON CHART: Yes STATUS PREG STATUS ASSESSED: N/A MEDS/ALLERGIES REVIEWED Meds/Allergies Reviewed Medications and Allergies including time and route of recently administered narcotics and sedatives. MEDS/ALLERGIES REVIEWED: Yes ASA RATING ASA RATING: II AIRWAY ASSESSMENT Airway Assessment Airway patency, oral function limitations, presence of caps, crowns, dentures, partials, and ability to extend neck assessed. AIRWAY ASSESSMENT: Yes MALLAMPATI SCORE MALLAMPATI SCORE: II PRE-SEDATION ASSESSMENT PRE-SEDATION ASSESSMENT: Yes TRICIA CASTILLO MD Dec 06, 2016 15:56
[2016-12-06] MEDS ORDERED: LIDOCAINE 2% 20 ML VIAL. IJ ONE (16:15)
[2016-12-06] MEDS ORDERED: HEPARIN for IV BOLUS 10,000 UNIT/10 ML VIAL. IART ONE (16:15)
[2016-12-06] MEDS ORDERED: NITROGLYCERIN 200 MCG/2 ML SYRINGE FOR CATH/VASC LAB. IART ONE (16:15)
[2016-12-06] MEDS ORDERED: IOHEXOL 300 MG/ML 100ML VIAL. IART ONE (16:15)
[2016-12-06] MEDS ORDERED: VERAPAMIL 5 MG/2 ML VIAL. IART ONE (16:15)
[2016-12-06] MEDS ORDERED: BIVALIRUDIN 250 MG VIAL. IV ONE ×2 (16:20→16:30)
[2016-12-06] MEDS ORDERED: ASPIRIN 325 MG TABLET ONE (16:20)
[2016-12-06] MEDS ORDERED: ASPIRIN 325 MG TABLET PO ONE (16:30)
[2016-12-06] MEDS ORDERED: CLOPIDOGREL BISULFATE 75 MG TABLET PO ONE (16:30)
[2016-12-06] MEDS: IV 1/2 NORMAL SALINE 1,000 ML IV SCH (17:24)
[2016-12-06] MEDS ORDERED: ACETAMINOPHEN 325 MG TABLET. PO PRN (17:30)
[2016-12-06] MEDS ORDERED: NITROGLYCERIN SUBLINGUAL 0.4 MG BOTTLE OF 25. SL PRN (17:30)
--- NOTE | 2016-12-06 17:36 | CARD ---
APPROVED REPORT Procedure(s) performed: 1. Left heart catheterization, selective coronary angiography and left ventr iculography via right transradial approach 2. Successful PCI/drug eluting stent placement to the left anterior descending artery 52 Minutes of Moderate Sedation INDICATION The indication(s) include : non-STEMI . PROCEDURE NARRATIVE After explaining the risks, benefits and alternative options, informed consent was obtained from olya ent. Patient was brought to the cardiac [facility] and right wrist was prepped and draped in the usual fashion after confirming a positive modified Prashant's test. Arterial access was obtained in the [facility] radial artery and a 6 Samoan sheath was inserted. 6 Samoan JL 3.5 and 6 Samoan JR4 catheters were used to perform selective angiography of the left and right coronary arteries after initial attempts to engage these vessels with Kiran catheter were unsuccessful. 6 Samoan pigtail catheter was used to perform left ventriculography at the end of procedure. The following findings were noted. FINDINGS 1. Hemodynamics: Left ventricular end-diastolic pressure of 19 mmHg. No pullback gradient across th e aortic valve. 2. Left ventriculography: Posterobasal wall hypokinesis with ejection fraction estimated at 50%. No significant mitral regurgitation seen. 3. Coronary angiography: a. The left main coronary artery arose from the left sinus of Valsalva, gave rise to the left anteri or descending and left circumflex arteries and did not show any significant stenosis. b. The left anterior descending artery showed patent stent in the proximal segment and a critical 90 -95% stenosis in the midsegment. c. The left circumflex artery did not show any significant stenosis. d. The right coronary artery was a large and dominant vessel arising from the right sinus of Valsalv a showed chronic total occlusion in the midsegment with distal reconstitution of posterior descending and posterolateral branches just beyond the stent in the distal segment via qujz-uv-nmaog collateral s. INTERVENTION The left main coronary artery was engaged with a 6 Samoan XB 3.5 guide catheter and the stenosis in t he left anterior descending artery was crossed with a 0.014 inch Beacon Endoscopic guidewire. This was p redilated with a 2.5 x 12 mm trek balloon following which this was successfully treated with a 3.5 x 26 mm resolute drug eluting stent. Follow-up angiography showed resolution of the stenosis to 0% with JOSEPHINE-3 distal flow. Patient tolerated the procedure well. Hemostasis was achieved using TR band. The re were no immediate complications. Conclusion 1. Two-vessel coronary artery disease with critical stenosis involving the left anterior descending artery and chronic total occlusion of the right coronary artery as stated above. 2. Successful PCI/drug eluting stent placement to the left anterior descending artery. 3. Posterobasal wall hypokinesis with ejection fraction estimated at 50% Recommendations 1. Aspirin 325 mg daily 2. Plavix 75 mg daily for preferably one year 3. Cardiovascular risk factor modification 4. We will assess symptoms/ischemia/viability to determine the need for PCI to CREW MANAGER of RCA
[2016-12-06] MEDS: diphenhydrAMINE HCL 25 MG CAPSULE PO SCH (20:47)
[2016-12-06] MEDS: ATORVASTATIN CALCIUM 40 MG TABLET. PO SCH (20:48)
[2016-12-06] MEDS: INSULIN DETEMIR 300 UNITS/3 ML INSULN.PEN. SQ SCH (20:55)
[2016-12-07 02:51] VITALS: BP 127/74
[2016-12-07] MEDS: IV 1/2 NORMAL SALINE 1,000 ML IV SCH (03:24)
[2016-12-07 07:00] VITALS: BP 134/85
[2016-12-07] MEDS ORDERED: ASPIRIN ENTERIC COATED 325 MG TABLET.DR. PO SCH (08:00)
[2016-12-07] MEDS ORDERED: CLOPIDOGREL BISULFATE 75 MG TABLET PO SCH (08:00)
[2016-12-07] MEDS: LINAGLIPTIN 5 MG TABLET PO SCH (08:43)
[2016-12-07] MEDS: ALLOPURINOL 300 MG TABLET. PO SCH (08:43)
[2016-12-07] MEDS: hydroCHLOROthiazide 12.5 MG CAPSULE PO SCH (08:43)
[2016-12-07] MEDS: METOPROLOL TART IMMED RELEASE 25 MG TABLET. PO SCH (08:43)
[2016-12-07] MEDS: LISINOPRIL 20 MG TABLET PO SCH (08:44)
[2016-12-07] MEDS: ASPIRIN ENTERIC COATED 81 MG TABLET.DR. PO SCH (08:44)
[2016-12-07] MEDS: INSULIN ASPART 300 UNITS/3 ML INSULN.PEN SQ SCH ×2 (08:49→08:50)
[2016-12-07 11:00] VITALS: BP 116/68
--- NOTE | 2016-12-07 11:44 | PDOC ---
CARDIO Progress Notes Date and Time Date of Service 12/07/2016 Time of Evaluation 1130 Subjective Subjective: No Chest Pain, No shortness of breath, No Palpitations, No Dizziness Vitals Vitals Vital Signs Date Time Temp Pulse Resp B/P (MAP) Pulse Ox O2 Delivery O2 Flow Rate FiO2 12/07/16 08:44 91 156/74 12/07/16 08:00 Room Air 12/07/16 07:00 98.3 18 94 98.3 12/06/16 16:48 2.0 Weight Weight [ ] Input and Output Intake and Output Intake and Output 12/07/16 07:00 Intake Total 1350 ml Balance 1350 ml Intake Oral 850 ml IV Total 500 ml # Voids 7 Laboratory Labs Laboratory Tests Test 12/06/16 18:31 12/06/16 20:45 12/07/16 07:32 Glucose (Fingerstick) 264 mg/dL (70-99) 294 mg/dL (70-99) 188 mg/dL (70-99) Physical Exam HEENT: Neck Supple W Full Motion Chest: Symmetric LUNGS: Clear to Auscultation Heart: S1S2, RRR (SR) Abdomen: Soft N/T Extremities: No Edema, No Calf Tenderness Neurology: alert, oriented, follow commands Other Exams right wrist arteriotomy site intact without swelling or erythema, neurovascular status intact. Assessment Assessment 1. NSTEMI: S/P PCI/FRANCIE to LAD. DRAMATIC COACH to RCA. Tolerated procedure well. 2. CAD: 2011 PCI/FRANCIE LAD, 2013 MD with FRANCIE to RCA. 2. Mild acute on chronic diastolic heart failure: compensated 3. HTN: controlled 4. DM2/HLP Recommendations 1. DAPT with ECASA 325 mg and plavix 75 mg po daily. 2. Follow up in office in 3-4 weeks and will discuss further in regards to DRAMATIC COACH to RCA. 3. Continue with secondary prevention and optimize BG control 4. Cardiac rehab encouraged 5. Encourage home BP monitoring. ROSA ROSS APRN Dec 07, 2016 11:44
[2016-12-07] MEDS ORDERED: ASPI325T11 PO (11:49)
[2016-12-07] MEDS ORDERED: CLOP75TA PO (11:49)
[2016-12-07] MEDS ORDERED: LISI40TA PO (11:49)
[2016-12-07] MEDS ORDERED: HYDR12.53 PO (11:49)
--- NOTE | 2016-12-07 11:51 | PDOC3 ---
Discharge Summary Visit Information Date of Admission: Dec 03, 2016 Date of Discharge: Dec 07, 2016 Admitting Diagnosis Comment: angina, unstable s/p 1 stent to LAD CAD hx with 2 indwelling stents NSTEMI Dm2, uncontrolled obesity, BMI 38 Final Diagnosis Problems Medical Problems: (1) Unstable angina Status: Acute Brief Hospital Course Allergies Allergies Coded Allergies Type Severity Reaction Last Updated Verified No Known Drug Allergies 01/22/14 No Vital Signs Vital Signs Date Time Temp Pulse Resp B/P (MAP) Pulse Ox O2 Delivery O2 Flow Rate FiO2 12/07/16 11:00 98.1 71 19 116/68 (84) 93 Room Air 98.1 12/06/16 16:48 2.0 Lab Results Laboratory Tests Test 12/05/16 14:45 12/05/16 16:44 12/05/16 20:35 12/06/16 05:25 Heparin Anti-Xa Act, Unfractionated 0.50 IU/mL (0.30-0.70) 0.40 IU/mL (0.30-0.70) Glucose (Fingerstick) 162 mg/dL (70-99) 187 mg/dL (70-99) White Blood Count 9.8 x10^3/uL (4.0-11.0) Red Blood Count 4.79 x10^6/uL (4.30-5.70) Hemoglobin 14.2 g/dL (13.0-17.5) Hematocrit 43.2 % (39.0-53.0) Mean Corpuscular Volume 90 fL (79-100) Mean Corpuscular Hemoglobin 30 pg (25-35) Mean Corpuscular Hemoglobin Concent 33 g/dL (31-37) Red Cell Distribution Width 15.0 % (11.5-14.5) Platelet Count 300 x10^3/uL (140-400) Neutrophils (%) (Auto) 69 % (31-73) Lymphocytes (%) (Auto) 19 % (24-48) Monocytes (%) (Auto) 8 % (0-9) Eosinophils (%) (Auto) 3 % (0-3) Basophils (%) (Auto) 1 % (0-3) Neutrophils # (Auto) 6.8 x10^3uL (1.8-7.7) Lymphocytes # (Auto) 1.9 x10^3/uL (1.0-4.8) Monocytes # (Auto) 0.8 x10^3/uL (0.0-1.1) Eosinophils # (Auto) 0.3 x10^3/uL (0.0-0.7) Basophils # (Auto) 0.1 x10^3/uL (0.0-0.2) Sodium Level 138 mmol/L (136-145) Potassium Level 3.9 mmol/L (3.5-5.1) Chloride Level 100 mmol/L (98-107) Carbon Dioxide Level 29 mmol/L (21-32) Anion Gap 9 (6-14) Blood Urea Nitrogen 23 mg/dL (8-26) Creatinine 0.8 mg/dL (0.7-1.3) Estimated GFR (Cockcroft-Gault) 96.7 BUN/Creatinine Ratio 29 (6-20) Glucose Level 179 mg/dL (70-99) Hemoglobin A1c 7.0 % (4.8-5.6) Calcium Level 9.5 mg/dL (8.5-10.1) Total Bilirubin 0.4 mg/dL (0.2-1.0) Aspartate Amino Transf (AST/SGOT) 21 U/L (15-37) Alanine Aminotransferase (ALT/SGPT) 31 U/L (16-63) Alkaline Phosphatase 37 U/L (46-116) Total Protein 7.1 g/dL (6.4-8.2) Albumin 3.6 g/dL (3.4-5.0) Albumin/Globulin Ratio 1.0 (1.0-1.7) Test 12/06/16 08:06 12/06/16 11:20 12/06/16 11:38 12/06/16 18:31 Glucose (Fingerstick) 223 mg/dL (70-99) 201 mg/dL (70-99) 264 mg/dL (70-99) Heparin Anti-Xa Act, Unfractionated 0.68 IU/mL (0.30-0.70) Test 12/06/16 20:45 12/07/16 07:32 Glucose (Fingerstick) 294 mg/dL (70-99) 188 mg/dL (70-99) Laboratory Tests Test 12/06/16 18:31 12/06/16 20:45 8/22/17 07:32 Glucose (Fingerstick) 264 mg/dL (70-99) 294 mg/dL (70-99) 188 mg/dL (70-99) Brief Hospital Course Mr. Funk is a 66 old obese male admitted for unstable angina, did have trop bump, hx CAD with 2 indwelling stents, LHC done and needed 1 stent to LAD Some adjustments to BP meds (bP runs high) To strat ASA 325 and plavix 75 Ricky RN and Maria Esther and pt and Time 32 mins Discharge Information Condition at Discharge: Improved, Stable Follow Up: Weeks (CARds as instructed) Disposition/Orders: D/C to Home Scheduled Allopurinol (Allopurinol), 1 TAB PO DAILY, (Reported) Aspirin (Aspir 81), 1 TAB PO DAILY, (Reported) Atorvastatin Calcium (Atorvastatin Calcium), 1 TAB PO QHS, (Reported) Doxylamine Succinate (Sleep Aid), 25 MG PO HS, (Reported) Insulin Glargine,Hum.rec.anlog (Toujeo Solostar), 25 UNIT SQ DAILY08, (Reported) Linagliptin (Tradjenta), 1 TAB PO DAILY, (Reported) Lisinopril/Hydrochlorothiazide (Lisinopril-Hctz 20-12.5 Mg Tab), 1 TAB PO BID, ( Reported) Metformin Hcl (Metformin Hcl), 1 TAB PO BID, (Reported) Metoprolol Tartrate (Metoprolol Tartrate), 25 MG PO BID, (Reported) Nifedipine (Procardia Xl), 1 TAB PO DAILY, (Reported) ROBERT ZAZUETA MD Dec 07, 2016 11:51
== END 2016-12-07 13:00 | disposition home or self-care (01) | DRG 246 ==
LOC: ER 18:42 → 2 SOUTH 20:07
PROVIDERS: ADMIT Internal Medicine; ATTEND Internal Medicine
PROC: 027034Z Dilation of Coronary Artery, One Artery with Drug-eluting Intraluminal Device, Percutaneous Approach (ICD-10-PCS; principal; 2016-12-06)
PROC: 4A023N7 Measurement of Cardiac Sampling and Pressure, Left Heart, Percutaneous Approach (ICD-10-PCS; 2016-12-06)
PROC: B2111ZZ Fluoroscopy of Multiple Coronary Arteries using Low Osmolar Contrast (ICD-10-PCS; 2016-12-06)
PROC: B2151ZZ Fluoroscopy of Left Heart using Low Osmolar Contrast (ICD-10-PCS; 2016-12-06)
DX: I21.4 Non-ST elevation (NSTEMI) myocardial infarction (principal); I50.33 Acute on chronic diastolic (congestive) heart failure; E11.65 Type 2 diabetes mellitus with hyperglycemia; E11.40 Type 2 diabetes mellitus with diabetic neuropathy, unspecified; E66.9 Obesity, unspecified; Z68.38 Body mass index [BMI] 38.0-38.9, adult; E78.5 Hyperlipidemia, unspecified; I25.2 Old myocardial infarction; Z98.61 Coronary angioplasty status; I11.0 Hypertensive heart disease with heart failure; I25.110 Atherosclerotic heart disease of native coronary artery with unstable angina pectoris; I45.10 Unspecified right bundle-branch block; M10.9 Gout, unspecified; Z82.49 Family history of ischemic heart disease and other diseases of the circulatory system; Z83.3 Family history of diabetes mellitus
CPT/HCPCS: 36415; 71010; 80053; 80061; 82962; 83036; 83735; 84443; 84484; 85025; 85520; 92928; 93005; 93306; 93458; C1725; C1769; C1874; C1887; C1892; J0583; J1644; J1815; J1940; J3490; Q0163; Q9967; 99285-25; J2001

== ENCOUNTER → 2018-06-28 | Outpatient (CLI) | payer MEDICARE ==
[~2018-06-28] MED LIST changes: +ASPI325T11 PO; +CLOP75TA PO; +DOXY25TA42 PO; +HYDR12.575 PO; +INSU300I SQ; +LINA5TAB PO; -LINA5TAB4 PO; +LISI-130 PO; -METF-620 PO; +METF10007 PO; +NIFE30TA15 PO; -NIFE30TA9 PO; -NIFE60TA10 PO; +NIFE60TA14 PO; +NIFE90TA PO
--- NOTE | 2018-06-28 13:40 | CARD ---
MR#: [id number] Date of Study: 06/28/2018 Ordering Physician: TRICIA TORRES, Referring Physician: TRICIA TORRES, Tech: Emilee Wang APPROVED REPORT EXAM: Two-dimensional and M-mode echocardiogram with Doppler and color Doppler. Other Information Quality : AverageHR: 76bpm INDICATION CAD Atherosclerotic Heart Disease of [place] coronary artery RISK FACTORS Hypertension Hyperlipidemia Diabetes 2D DIMENSIONS Left Atrium(2D)4.4 (1.6-4.0cm)IVSd1.4 (0.7-1.1cm) Aortic Root(2D)3.7 (2.0-3.7cm)LVDd6.2 (3.9-5.9cm) LVOT Diameter2.3 (1.8-2.4cm)PWd1.4 (0.7-1.1cm) LVDs3.7 (2.5-4.0cm)FS (%) 40.6 % SV136.5 mlLVEF(%)70.4 (>50%) Aortic Valve AoV Peak Javier.215.6cm/sAoV VTI42.1cm AO Peak GR.18.6mmHgLVOT Peak Javier.152.5cm/s LVOT VTI 33.87cmAO Mean GR.11mmHg MIGUELINA (VMAX)2.89mi6RBC (VTI)3.26cm2 Mitral Valve MV E Zjzlswfx340.7cm/sMV DECEL VROM581aq MV A Fcstqhbw179.0cm/sMV MDB43fo E/A Ratio0.9MVA (PHT)3.23cm2 TDI E/Lateral E'12.3E/Medial E'19.4 Pulmonary Valve PV Peak Pdbsimii221.7cm/sPV Peak Grad.7mmHg Tricuspid Valve TR P. Wkbafadv032xh/sRAP YERCGTTK6gcMq TR Peak Gr.36jmOaGNFF71ifOl Pulmonary Vein S1 Wdswaoax35.2cm/sD2 Xpttcjwo72.5cm/s PVa dhofqqdp122wsgs LEFT VENTRICLE The Left Ventricle is mildly dilated. There is moderate concentric left ventricular hypertrophy. Basa l inferior wall hypokinesis. The Ejection Fraction is 45-50%. Transmitral Doppler flow pattern is Gra de I-abnormal relaxation pattern. RIGHT VENTRICLE The right ventricle is normal size. There is normal right ventricular wall thickness. The right ventr icular systolic function is normal. ATRIA The left atrium is mildly dilated. The right atrium is mildly dilated. The interatrial septum is inta ct with no evidence for an atrial septal defect or patent foramen ovale as noted on 2-D or Doppler im aging. AORTIC VALVE The aortic valve is thickened but opens well. Doppler and Color Flow revealed trace to mild aortic re gurgitation. There is no significant aortic valvular stenosis. MITRAL VALVE The mitral valve is normal in structure and function. There is no evidence of mitral valve prolapse. There is no mitral valve stenosis. Doppler and Color-flow revealed trace mitral regurgitation. TRICUSPID VALVE The tricuspid valve is normal in structure and function. Doppler and Color Flow revealed trace tricus pid regurgitation 33 mmHg. There is no tricuspid valve stenosis. PULMONIC VALVE The pulmonic valve is not well visualized. Doppler and Color Flow revealed trace pulmonic valvular re gurgitation. GREAT VESSELS The aortic root is normal in size. The IVC is normal in size and collapses >50% with inspiration. PERICARDIAL EFFUSION There is no evidence of significant pericardial effusion. Critical Notification Critical Value: No <Conclusion> Basal inferior wall hypokinesis. The Ejection Fraction is 45-50%. Transmitral Doppler flow pattern is Grade I-abnormal relaxation pattern. The left atrium is mildly dilated. Trace to mild aortic regurgitation. Trace mitral regurgitation. Trace tricuspid regurgitation. PAP 33 mmHg. There is no evidence of significant pericardial effusion. Signed by : Tricia Torres, Electronically Approved : 06/28/2018 13:39:41
== END | disposition home or self-care (01) ==
LOC: ECHO 09:42
PROVIDERS: ATTEND Internal Medicine Cardiovascular Disease
DX: I25.10 Atherosclerotic heart disease of native coronary artery without angina pectoris (principal); I11.9 Hypertensive heart disease without heart failure; E78.5 Hyperlipidemia, unspecified; E11.9 Type 2 diabetes mellitus without complications; R00.8 Other abnormalities of heart beat
CPT/HCPCS: 93306

== ENCOUNTER 2019-03-05 06:47 | Outpatient (CLI) | payer MEDICARE ==
[~2019-03-05] VITALS: Ht 182.9 cm; Wt 127.0 kg
[2019-03-05] VITALS (15 sets, daily range): BP systolic 97–132; BP diastolic 58–78
[~2019-03-05 06:47] MED LIST changes: +LISI1TAB19 PO; -LISI1TAB5 PO
[2019-03-05] MEDS ORDERED: INSU100V37 SQ (07:29)
[2019-03-05] MEDS ORDERED: LIDOCAINE 1% PF 2 ML VIAL. ONE (07:39)
[2019-03-05] MEDS ORDERED: IODIXANOL 320 MG/ML 100 ML VIAL. ONE ×2 (07:39→09:03)
[2019-03-05 07:43] LABS: HEMATOCRIT 43.2 % (39.0-53.0); HEMOGLOBIN 14.4 g/dL (13.0-17.5); RED BLOOD COUNT 4.89 x10^6/uL (4.30-5.70); RED CELL DISTRIBUTION WIDTH 14.8 % (11.5-14.5)
[2019-03-05 07:50] LABS: PROTHROMBIN TIME PATIENT 12.7 SEC (11.7-14.0)
[2019-03-05 07:59] LABS: CALCIUM 9.2 mg/dL (8.5-10.1); CREATININE 0.8 mg/dL (0.7-1.3); GFR 96.1; POTASSIUM 4.2 mmol/L (3.5-5.1)
[2019-03-05] MEDS ORDERED: VERAPAMIL 5 MG/2 ML VIAL. ONE (08:09)
[2019-03-05] MEDS ORDERED: HEPARIN for IV BOLUS 10,000 UNIT/10 ML VIAL. ONE (08:09)
[2019-03-05] MEDS ORDERED: NITROGLYCERIN 200 MCG/2 ML SYRINGE FOR CATH/VASC LAB. ONE (08:09)
[2019-03-05] MEDS ORDERED: MIDAZOLAM HCL/PF 5 MG/5 ML VIAL. ONE (08:09)
[2019-03-05] MEDS ORDERED: fentaNYL PF VIAL 100 MCG/2 ML VIAL ONE (08:09)
[2019-03-05] MEDS ORDERED: BIVALIRUDIN 250 MG VIAL. IV ONE (08:58)
[2019-03-05] MEDS: NITROGLYCERIN 200 MCG/2 ML SYRINGE FOR CATH/VASC LAB. IART ONE (09:28)
[2019-03-05] MEDS: BIVALIRUDIN 250 MG VIAL. IV ONE (09:29)
[2019-03-05] MEDS: LIDOCAINE 1% PF 2 ML VIAL. INJ ONE (09:29)
[2019-03-05] MEDS: IODIXANOL 320 MG/ML 100 ML VIAL. IART ONE (09:29)
[2019-03-05] MEDS: VERAPAMIL 5 MG/2 ML VIAL. IART ONE (09:30)
[2019-03-05] MEDS: fentaNYL PF VIAL 100 MCG/2 ML VIAL IV ONE (09:30)
[2019-03-05] MEDS: MIDAZOLAM HCL/PF 5 MG/5 ML VIAL. IV ONE (09:30)
[2019-03-05] MEDS: HEPARIN for IV BOLUS 10,000 UNIT/10 ML VIAL. IART ONE (09:31)
--- NOTE | 2019-03-05 09:34 | PDOC ---
MODERATE SEDATION ASSESSMENT RISKS/ALTERNATIVES Risks/Alternatives Risks and alternatives of this type of sedation and procedure discussed with: RISK/ALTERNATIVES: Patient H & P ON CHART H & P H & P on chart and reviewed for co-morbid conditions and appropriate labs. H&P ON CHART: Yes STATUS PREG STATUS ASSESSED: N/A MEDS/ALLERGIES REVIEWED Meds/Allergies Reviewed Medications and Allergies including time and route of recently administered narcotics and sedatives. MEDS/ALLERGIES REVIEWED: Yes ASA RATING ASA RATING: II AIRWAY ASSESSMENT Airway Assessment Airway patency, oral function limitations, presence of caps, crowns, dentures, partials, and ability to extend neck assessed. AIRWAY ASSESSMENT: Yes MALLAMPATI SCORE MALLAMPATI SCORE: II PRE-SEDATION ASSESSMENT PRE-SEDATION ASSESSMENT: Yes TRICIA CASTILLO MD Mar 05, 2019 09:34
[2019-03-05] MEDS ORDERED: 0.9 % SODIUM CHLORIDE 10 ML DISP.SYRIN. IV PRN (09:45)
[2019-03-05] MEDS ORDERED: NITROGLYCERIN SUBLINGUAL 0.4 MG BOTTLE OF 25. SL PRN (09:45)
--- NOTE | 2019-03-05 09:52 | CARD ---
MR#: [id number] Date of Study: 03/05/2019 Ordering Physician: TRICIA TORRES, Referring Physician: TRICIA TORRES, Tech: RT Kristina (R) REYNA APPROVED REPORT Technologist: RT Kristina (R) REYNA Nurse: Niru Christianson R.N. Procedure(s) performed: 1. Left heart catheterization, selective coronary angiography and left ventr iculography via right transradial approach 2. Successful PCI/drug eluting stent placement to the obtuse marginal branch of left circumflex clarence ry fl time: 19.1 mins dose: 220.31 gy/cm2 contrast: 214 ml moderate sedation: 55 min INDICATION The indication(s) include : Coronary artery disease, positive stress test. [facility] Clinical Frailty Scale [facility] Clinical Frailty Scale: Managing Well Heart Failure Heart Failure: No PROCEDURE NARRATIVE After explaining the risks, benefits and alternative options, informed consent was obtained from olya ent. Patient was brought to the cardiac [facility] and right wrist was prepped and draped in the usual fashion after confirming a positive modified Prashant's test. Arterial access was obtained in the righ t radial artery and a 6 Slovak sheath was inserted. 6 Slovak Kiran and 6 Slovak JL 3.5 catheters we re used to perform selective angiography of the right and left coronary arteries. 6 Slovak pigtail c atheter was used to perform left ventriculography. The following findings were noted. FINDINGS 1. Hemodynamics: Left ventricular end-diastolic pressure of 9 mmHg. No pullback gradient across the aortic valve. 2. Left ventriculography: Posterobasal wall hypokinesis with ejection fraction estimated at 50%. No significant mitral regurgitation seen. 3. Coronary angiography: a. The left main coronary artery arose from the left sinus of Valsalva, gave rise to the left anteri or descending and left circumflex arteries and did not show any significant stenosis. b. The left anterior descending artery showed patent stent in the proximal to midsegment. c. The left circumflex artery showed 80% stenosis involving the proximal segment of the first obtuse marginal branch. d. The right coronary artery arose from the right sinus of Valsalva that showed chronic total occlus ion in the midsegment with faint distal reconstitution from left to right collaterals. This was descr ibed in prior cardiac catheterization. INTERVENTION The left main coronary artery was engaged with a 6 Slovak EBU 3.5 guide catheter. The stenosis in the first obtuse marginal branch of left circumflex artery was crossed with a 0.014 inch [employer] Pro water guidewire. This was predilated with a 3.0 x 12 mm trek balloon following which this was treated succ essfully with a 3.0 x 12 mm resolute Perez drug-eluting stent. Follow-up angiography showed resolution of the stenosis to 0% with JOSEPHINE-3 distal flow. Patient tolerated the procedure well. Hemostasis was achieved using TR band. There were no immediate complications. JOSEPHINE Flow JOSEPHINE Flow (Pre-Intervention): JOSEPHINE-3 JOSEPHINE Flow (Post-Intervention): JOSEPHINE-3 Conclusion 1. 80% stenosis involving the obtuse marginal branch of left circumflex artery. The previously place d stent in the left anterior descending artery was patent. The right coronary artery showed chronic t otal occlusion with vrzr-ko-zacvf collaterals, described in prior cardiac catheter position. 2. Successful PCI/drug eluting stent placement to the obtuse marginal branch of left circumflex clarence ry. 3. Posterobasal wall hypokinesis with ejection fraction estimated at 50% Recommendations 1. Aspirin 325 mg daily for one month followed by 81 mg daily 2. Plavix 75 mg daily for preferably one year 3. Cardiovascular risk factor modification Signed by : Tricia Torres, Electronically Approved : 03/05/2019 09:52:38
[2019-03-06] MEDS ORDERED: ASPIRIN ENTERIC COATED 325 MG TABLET.DR. PO SCH (08:00)
[2019-03-06] MEDS ORDERED: CLOPIDOGREL BISULFATE 75 MG TABLET PO SCH (08:00)
== END 2019-03-05 13:55 | disposition home or self-care (01) ==
LOC: CCL 06:47
PROVIDERS: ATTEND Internal Medicine Cardiovascular Disease
DX: I25.10 Atherosclerotic heart disease of native coronary artery without angina pectoris (principal); M10.9 Gout, unspecified; I10 Essential (primary) hypertension; E11.9 Type 2 diabetes mellitus without complications; E78.5 Hyperlipidemia, unspecified; I25.2 Old myocardial infarction; Z79.82 Long term (current) use of aspirin; Z79.84 Long term (current) use of oral hypoglycemic drugs
CPT/HCPCS: 36415; 80048; 85027; 85610; 93458; 99152; 99153; C1725; C1769; C1874; C1887; C1892; C9600; J0583; J1644; J2250; J3010; J3490; Q9967; 92928

== ENCOUNTER → 2019-11-20 | Outpatient (CLI) | payer MEDICARE ==
[2019-03-05 13:45] VITALS: BP 118/71
[~2019-11-20] MED LIST changes: +INSU100V37 SQ; -LISI1TAB19 PO; +LISI1TAB37 PO
--- NOTE | 2019-11-20 13:32 | CARD ---
MR#: [id number] Date of Study: 11/20/2019 Ordering Physician: TRICIA TORRES, Referring Physician: TRICIA TORRES, Tech: Emilee Wang APPROVED REPORT EXAM: Two-dimensional and M-mode echocardiogram with Doppler and color Doppler. Other Information HR: 71bpm Technically limited study due to body habitus. INDICATION Cardiac Disease: CAD RISK FACTORS Hypertension Diabetes 2D DIMENSIONS RVDd3.5 (2.9-3.5cm)Left Atrium(2D)4.3 (1.6-4.0cm) IVSd1.3 (0.7-1.1cm)Aortic Root(2D)3.5 (2.0-3.7cm) LVDd5.8 (3.9-5.9cm)LVOT Diameter2.3 (1.8-2.4cm) PWd1.4 (0.7-1.1cm)LVDs4.1 (2.5-4.0cm) FS (%) 29.4 %SV92.0 ml LVEF(%)55.7 (>50%) Aortic Valve AoV Peak Javier.195.3cm/sAoV VTI39.1cm AO Peak GR.15.3mmHgLVOT Peak Javier.132.7cm/s LVOT VTI 27.85cmAO Mean GR.8mmHg MIGUELINA (VMAX)1.31ex3XLP (VTI)2.94cm2 Mitral Valve MV E Lhzccdmg113.7cm/sMV DECEL DRPP397fz MV A Ocvdglog684.1cm/sMV E Mean Gr.3mmHg MV HPD79udA/A Ratio1.0 MVA (PHT)2.98cm2 TDI E/Lateral E'11.1E/Medial E'13.1 Pulmonary Valve PV Peak Uwgucjwk463.9cm/sPV Peak Grad.4mmHg Tricuspid Valve TR P. Wsqnpmdz713qg/sRAP AZODPILW9qyJm TR Peak Gr.44aoJaBRLA54tmSv Pulmonary Vein S1 Sgkvmtfx15.5cm/sD2 Ktcrfhul65.5cm/s PVa srjzzhfb959lewh LEFT VENTRICLE The left ventricle is normal size. There is moderate concentric left ventricular hypertrophy. The lef t ventricular systolic function is normal. The Ejection Fraction is 55-60%. There is normal LV segmen claire wall motion. Transmitral Doppler flow pattern is Grade II-pseudonormal filling dynamics. RIGHT VENTRICLE The right ventricle is normal size. There is normal right ventricular wall thickness. The right ventr icular systolic function is normal. ATRIA The left atrium is borderline dilated. The right atrium is mildly dilated. The interatrial septum is intact with no evidence for an atrial septal defect or patent foramen ovale as noted on 2-D or Dopple r imaging. AORTIC VALVE The aortic valve is calcified but opens well. Doppler and Color Flow revealed no significant aortic r egurgitation. There is no significant aortic valvular stenosis. Calculated aortic valve area is 2.71 cm2 with maximum pressure gradient of 18 mmHg and mean pressure gradient of 10 mmHg. MITRAL VALVE The mitral valve is normal in structure and function. There is no evidence of mitral valve prolapse. There is no mitral valve stenosis with a mean gradient of 2.6 mmHg. Doppler and Color-flow revealed t race mitral regurgitation. TRICUSPID VALVE The tricuspid valve is normal in structure and function. Doppler and Color Flow revealed trace tricus pid regurgitation with an estimated PAP of 38 mmHg. There is no tricuspid valve stenosis. PULMONIC VALVE The pulmonic valve is not well visualized. Doppler and Color Flow revealed no pulmonic valvular regur gitation. GREAT VESSELS The aortic root is normal in size. The ascending aorta is normal in size. The IVC is normal in size a nd collapses >50% with inspiration. PERICARDIAL EFFUSION There is no evidence of significant pericardial effusion. Critical Notification Critical Value: No <Conclusion> The left ventricular systolic function is normal. The Ejection Fraction is 55-60%. There is normal LV segmental wall motion. Trace mitral regurgitation. Trace tricuspid regurgitation with an estimated PAP of 38 mmHg. There is no evidence of significant pericardial effusion. Signed by : Tricia Torres, Electronically Approved : 11/20/2019 13:32:24
== END | disposition home or self-care (01) ==
LOC: ECHO 10:33
PROVIDERS: ATTEND Internal Medicine Cardiovascular Disease
DX: I35.8 Other nonrheumatic aortic valve disorders (principal); I51.7 Cardiomegaly; I25.10 Atherosclerotic heart disease of native coronary artery without angina pectoris
CPT/HCPCS: 93306

== ENCOUNTER → 2020-12-03 | Outpatient (CLI) | payer MEDICARE ==
[2020-08-21 08:40] VITALS: BP 123/74
[~2020-12-03] MED LIST changes: +ASPI-630 PO; +ATOR80TA72 PO; +DOCU-109 PO; +EMPA25TA PO; -LISI-334 PO; +LISI20TA18 PO; +OXYC1TAB15 PO
--- NOTE | 2020-12-03 15:28 | CARD ---
MR#: [id number] Date of Study: 12/03/2020 Ordering Physician: TRICIA CASTILLO, Referring Physician: TRICIA CASTILLO, Tech: Emilee Wang, [facility] APPROVED REPORT EXAM: Two-dimensional and M-mode echocardiogram with Doppler and color Doppler. Other Information Quality : FairHR: 78bpm Technically limited study due to obesity INDICATION Cardiac Disease: CAD RISK FACTORS Hypertension Hyperlipidemia Diabetes 2D DIMENSIONS Left Atrium(2D)3.5 (1.6-4.0cm)IVSd1.1 (0.7-1.1cm) Aortic Root(2D)3.8 (2.0-3.7cm)LVDd6.3 (3.9-5.9cm) LVOT Diameter2.0 (1.8-2.4cm)PWd1.4 (0.7-1.1cm) LVDs4.3 (2.5-4.0cm)FS (%) 36.5 % SV155.8 ml Aortic Valve AoV Peak Javier.228.8cm/sAoV VTI43.9cm AO Peak GR.20.9mmHgLVOT Peak Javier.113.6cm/s LVOT VTI 24.62cmAO Mean GR.12mmHg MIGUELINA (VMAX)1.81dy9FAY (VTI)1.83cm2 Mitral Valve MV E Duriyxmk53.6cm/sMV DECEL JGKT933ks MV A Idtxtiae547.7cm/sMV E Mean Gr.3mmHg MV SCR97vbB/A Ratio0.8 MVA (PHT)3.39cm2 TDI E/Lateral E'8.9E/Medial E'13.2 Pulmonary Valve PV Peak Gmvxbibc669.7cm/sPV Peak Grad.4mmHg Tricuspid Valve TR P. Seqhpzaw049tz/sRAP ZUABPEBC2yfYg TR Peak Gr.67gqQwMRPK17mvBq Pulmonary Vein S1 Qijqwrgx13.6cm/sD2 Lvmvayvp35.9cm/s PVa ajloaumb777wyxf LEFT VENTRICLE The Left Ventricle is borderline dilated. There is mild concentric left ventricular hypertrophy. The left ventricular systolic function is normal and the ejection fraction is within normal range. The Ej ection Fraction is 50-55%. There is normal LV segmental wall motion. Transmitral Doppler flow pattern is Grade I-abnormal relaxation pattern. RIGHT VENTRICLE The right ventricle is mildly dilated. There is normal right ventricular wall thickness. The right ve ntricular systolic function is normal. ATRIA The left atrium size is normal. The right atrium is borderline dilated. The interatrial septum is int act with no evidence for an atrial septal defect or patent foramen ovale as noted on 2-D or Doppler i maging. AORTIC VALVE The aortic valve is calcified but opens well. Doppler and Color Flow revealed no significant aortic r egurgitation. There is no significant aortic valvular stenosis. Calculated aortic valve area is 1.73 cm2 with maximum pressure gradient of 24 mmHg and mean pressure gradient of 13 mmHg. MITRAL VALVE The mitral valve is normal in structure and function. There is no evidence of mitral valve prolapse. There is no mitral valve stenosis with an mean gradient of 3.5 mmHg. Doppler and Color Flow revealed no mitral valve regurgitation noted. TRICUSPID VALVE Doppler and Color Flow revealed trace tricuspid regurgitation. PULMONIC VALVE The pulmonic valve is not well visualized. Doppler and Color Flow revealed trace pulmonic valvular re gurgitation. GREAT VESSELS The aortic root is normal in size. The ascending aorta is mildly dilated measuring 3.87 cm. The IVC i s dilated. PERICARDIAL EFFUSION There is no evidence of significant pericardial effusion. Critical Notification Critical Value: No <Conclusion> The Left Ventricle is borderline dilated. The left ventricular systolic function is normal and the ejection fraction is within normal range. The Ejection Fraction is 50-55%. There is mild concentric left ventricular hypertrophy. Doppler and Color Flow revealed no significant aortic regurgitation. There is no significant aortic valvular stenosis. Doppler and Color Flow revealed no mitral valve regurgitation noted. Doppler and Color Flow revealed trace tricuspid regurgitation. The ascending aorta is mildly dilated measuring 3.87 cm. Signed by : Thomas Teresa MD Electronically Approved : 12/03/2020 15:27:35
== END ==
LOC: ECHO 12:36
PROVIDERS: ATTEND Internal Medicine Cardiovascular Disease
DX: I35.1 Nonrheumatic aortic (valve) insufficiency (principal); I51.7 Cardiomegaly; I25.10 Atherosclerotic heart disease of native coronary artery without angina pectoris
CPT/HCPCS: 93306

== ENCOUNTER → 2021-06-08 | Outpatient (CLI) | payer MEDICARE ==
[2020-08-21 08:40] VITALS: BP 123/74
[~2021-06-08] MED LIST changes: -EMPA25TA PO; +EMPA25TA3 PO; +REGADENOSON 0.4 MG/5 ML DISP.SYRIN. IV ONE
--- NOTE | 2021-06-09 07:50 | RAD ---
MR#: [id number] Date of Study: 06/08/2021 Ordering Physician: TRICIA CASTILLO, Referring Physician: MILY CARDOZA Tech: POLINA Rdoriguez, ARRMariola (R) (N) APPROVED REPORT Test Type: Pharmacological Stress Nurse/Tech: Niru Christianson R.N. Test Indications: CAD Cardiac History: Cardiac stents 2019, htn, obesity, DM Medications: See Electronic Medical Record Medical History: See Electronic Medical Record Resting ECG: SR w/ BBB Resting Heart Rate: 74 bpm Resting Blood Pressure: 126/65mmHg Pretest Chest Pain: No chest pain Nurse/Tech Notes S1S2, murmur, lungs- CTA Consent: The procedure was explained to the patient in lay terms. Informed consent was witnessed. Haseeb eout was entered into [employer]. History and Stress Test performed by RT Luciana Spence) (N) Pharm. Details Pharmacologic stress testing was performed using 0.4mg per 5ml of regadenoson given intravenously ove r 7-10 seconds. Stress Symptoms SOA POST EXERCISE Reason for Termination: Infusion complete Max HR: 95 bpm Max Blood Pressure: 138/58mmHg Blood Pressure response to exercise: Normal blood pressure response during stress. Heart Rate response to exercise: wnl Chest Pain: No. Arrhythmia: No. ST Change: No. INTERPRETATION Stress EKG Conclusion: Baseline EKG shows sinus rhythm with right bundle branch block. Nondiagnostic changes at peak stress. No arrhythmias. Imaging Protocol IMAGE PROTOCOL: Rest Tc-99m/stress Tc-99m 1 day Rest: Stress: Viability: Radiopharm.Tc99m DsxipewhgBg68n Sestamibi Iolv30rKr 31.4mCi Img Date 06/08/2021 06/08/2021 Inj-Img Ppmr10vgp. 60min. Rest Admin Site:IV - Left AntecubitalAdministrator:RT Luciana Spence)(N) Stress Admin Site: IV - Left AntecubitalAdministrator: RT Luciana Castañeda)(N) STRESS DATA End Diast. Vol.150.0mlAv. Heart Rate98.0bpm End Syst. Vol.51.0mlCO Index BSA0.0L/min Myocardial Gnve209.0gEject. Fofbvynw75.0% Stress Rates Pk. Fill Rate2.61EDV/secLVtime Pk. Fill 69.41msec Pk. Empty Rate4.29ESV/secLVtime Pk. Oadhu553.57msec 1/3 Pk. Fill1.92EDV/sec Stress Scores Regional WT0.00Summed WT11.00 Regional WM0.00Summed WM3.00 LV Perfusion Scintigraphic images showed small to moderate fixed defect involving the inferior wall consistent wit h previous myocardial infarction without any reversibility. Wall Motion Mild inferior wall hypokinesis with preserved ejection fraction of 65% LV Perf. Quant 17 Seg. SSS12.00 17 Seg. SRS15.00 17 Seg. SDS1.00 Stress Defect Extent (% LAD)3.80Rest Defect Extent (% LAD)22.50Rev. Defect Extent (% LAD)0.00 Stress Defect Extent (% LCX) 48.80Rest Defect Extent (% LCX)55.00Rev. Defect Extent (% LCX)0.00 Stress Defect Extent (% RCA)40.00Rest Defect Extent (% RCA)33.30Rev. Defect Extent (% RCA)4.40 Stress Defect Extent (% JORGE)24.80Rest Defect Extent (% JORGE)37.00Rev. Defect Extent (% JORGE)1.50 Conclusion 1. Regadenoson cardioisotope stress test showed small to moderate infarct involving the inferior wall without any ischemia. 2. Mild inferior wall hypokinesis with preserved ejection fraction of 65% 3. Low risk for cardiac events. Signed by : Tricia Castillo, Electronically Approved : 06/09/2021 07:50:22
== END ==
LOC: NM 10:00
PROVIDERS: ATTEND Internal Medicine Cardiovascular Disease
DX: I25.10 Atherosclerotic heart disease of native coronary artery without angina pectoris (principal)
CPT/HCPCS: 78452; 93017; A9500; J2785